=== PATIENT | male | born 1950 | race Caucasian/White ===

== ENCOUNTER 2020-04-09 12:37 | Inpatient (IN) | payer OTHER, MEDICARE, SELFPAY ==
[2020-04-09] VITALS (30 sets, daily range): BP systolic 122–215; BP diastolic 65–116; PULSE 80–126; RESP 15–30; TEMP 36.5–36.8; O2SAT 93–97; BMI 38.3
--- NOTE | 2020-04-09 13:01 | XR_ITS ---
WS: [id number] PORTABLE CHEST HISTORY: DYSPNEA COMPARISON: None available. Lungs are clear and well expanded. No pleural effusion or pneumothorax. Cardiac size: Normal. Mediastinum/Aorta: Normal mediastinum. No osseous abnormality seen. XR/XR chest 1V portable [id number] IMPRESSION: Unremarkable portable chest.
--- NOTE | 2020-04-09 13:02 | ECG_ITS ---
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 Measurements Intervals [place] Rate: 124 P: 41 IN: 187 QRS: -37 QRSD: 87 T: -3 QT: 319 QTc: 459 Interpretive Statements SINUS TACHYCARDIA PATTERN CONSISTENT WITH PULMONARY DISEASE INFERIOR MYOCARDIAL INFARCTION [40+ ms Q WAVE AND/OR ST/T ABNORMALITY IN II/aVF], PROBABLY OLD Compared to ECG 08/22/2016 16:37:30 Myocardial infarct finding now present Sinus rhythm no longer present First degree AV block no longer present Intraventricular conduction delay no longer present Electronically Signed On 04-10-2020 16:24:42 CDT by Wiley Wilhelm M.D. [id number]
[2020-04-09 13:30] LABS: Basophils % 0.2 %; Eosinophils # 0.2 10^3/uL (0.0-0.8); Eosinophils % 2.5 %; Hematocrit 47.3 % (42.0-52.0); Hemoglobin 15.4 g/dL (11.7-16.6); Lymphocytes # 1.8 10^3/uL (0.8-4.8); Lymphocytes % 21.6 %; Mean Corpuscular HGB Conc 32.6 g/dL (30.0-36.0); Mean Corpuscular Hemoglobin 29.5 pg (28.0-34.0); Mean Corpuscular Volume 90.6 fL (80-94); Mean Platelet Volume 10.2 fL (7.4-10.4); Monocytes # 0.6 10^3/uL (0.2-0.9); Monocytes % 7.7 %; Neutrophils # 5.51 10^3/uL (1.8-7.7); Neutrophils % 67.8 %; Nucleated Red Blood Cells % 0 %; Platelet Count 242 10^3/cmm (130-400); Red Blood Count 5.22 10^6/uL (4.1-5.3); Red Cell Distribution Width 11.8 % (12.1-15.1); White Blood Count 8.1 10^3/uL (4.0-10.0)
[2020-04-09] MEDS: labetalol 5 mg/mL SDV 20mL 10 MG IVP ×2 (13:34→14:12)
[2020-04-09] MEDS: sodium chloride 0.9% 1,000 ML 75 ML IV (13:35)
--- NOTE | 2020-04-09 13:39 | ED_ITS ---
HPI - Chest Pain General: Chief Complaint: Chest Pain Stated Complaint: sent by va Time Seen by Provider: 04/09/20 13:00 Source: patient Mode of arrival: ambulatory Limitations: no limitations History of Present Illness: HPI narrative: Mr. Carter is a nice 69-year-old male who comes in complaining of feeling lightheaded and dizzy. He also has chest pressure and chest heaviness. Patient states he did not sleep at all last night and he cannot explain to me why. He states that his legs were uncomfortable which to him as often a problem as he has neuropathy and chronic pain in his legs. He got up this morning and went to have coffee with his friends but then upon turning home he sat down and rested and felt like he was going to fall asleep but an effort to stay up he decided to go out and work in his garage. There is no air conditioning there but he did turn on a fan and said he was only doing some light work in the garage including using a air blower when he began to feel like he was floating and lightheaded. He had a sensation of blood in his mouth. And then developed chest pressure and heaviness. He denies anything similar in the past. He denies any exacerbating alleviating factors. Slowly as time has gone on he feels better as he has been in the air conditioning and cool down. Associated symptoms: Reports dyspnea; Deny abdominal pain, diaphoresis, fever(s), nausea, palpitations, syncope or vomiting Review of Systems 2 Const: Reports: fatigue and malaise; Denies: fever(s), chills, body aches or diaphoresis Eyes: Denies: change in vision, blurry vision, blind spots, photophobia, eye discharge or eye redness ENMT: Denies: throat pain, odynophagia, hoarseness, swelling of lips/tongue, oral sores, ear or mastoid pain, ear discharge, change in hearing or nasal discharge Card: Reports: chest pain and lightheadedness; Denies: palpitations, irregular heart rhythm, edema, syncope, pre-syncope, dyspnea on exertion or orthopnea Resp: Reports: dyspnea; Denies: productive cough, non-productive cough, wheezing, hemoptysis or chest congestion GI: Denies: abdominal pain, nausea, vomiting, hematemesis, coffee ground emesis, heartburn, diarrhea, constipation, GI cramping, hematochezia or melena : Denies: flank pain, dysuria, urinary frequency, urinary urgency or hematuria Musc: Denies: neck pain, back pain, extremity pain, extremity swelling, joint pain, joint swelling, joint redness, joint warmth or joint stiffness Skin/Breast: Denies: rash, pruritus, erythema, skin tenderness or jaundice Neuro: Denies: headache(s), numbness in extremities, weakness in extremities, sensory changes, lack of coordination, difficulty walking, dizziness, vertigo, confusion, Slurred speech present or seizure-like activity Tad/Lymph: Denies: easy bruising, easy bleeding, petechiae, purpura or enlarged lymph nodes All/Imm: Denies: urticaria, throat swelling, tongue swelling, facial swelling or acute wheezing PFSH ED PFSH: Medical History Hypertension Physical Exam Const: COMMON NORMALS: no acute distress, patient oriented x3, no limitations, healthy appearing and well nourished GENERAL APPEARANCE: cooperative, well kempt and well developed HENMT: COMMON NORMALS: normocephalic, atraumatic, external ears normal, EAC's normal and Normal external nose present HEAD & SCALP: normal to inspection, normocephalic and atraumatic FACE & SINUS: normal facial exam and face symmetric NOSE: Normal external nose present and Normal nares present EXTERNAL EAR: Yes external ears normal EXTERNAL AUDITORY CANAL: EAC's normal MOUTH: Normal oral and palatal mucosa present, lip normal, tongue normal and other (No obvious bleeding from the mouth. On right bug mucosal service possible cause of bleeding with the inflamed vein.) Eye: COMMON NORMALS: Equal, round and reactive pupils present and conjunctivae normal GENERAL EYE: appearance normal, both eyes and all related structures ALIGNMENT: Yes alignment normal PERIORBITAL: periorbital findings normal EYELID: eyelids normal CONJUNCTIVA: Yes conjunctivae normal SCLERA: sclerae normal PUPIL: Yes Equal, round and reactive pupils present Neck/C-Spine: COMMON NORMALS: full ROM, no lymphadenopathy, supple, no meningeal signs and no JVD GENERAL: Yes normal visual inspection and Yes trachea midline Chest: COMMONS NORMALS: normal inspection of the chest and normal palpation of entire chest wall Resp: COMMON NORMALS: normal respiratory effort, No retractions and No use of accessory muscles EFFORT & INSPECTION: Yes able to speak in complete sentences and Yes symmetric chest movement AUSCULTATION: no crackles, no rales, no rhonchi and no wheezes Cardio: COMMON NORMALS: no JVD, regular rate, regular rhythm, S1 normal heart sound present and S2 normal heart sound present RATE: regular rate RHYTHM: regular rhythm HEART SOUNDS: S1 normal heart sound present, S2 normal heart sound present, no click, no gallops, no murmurs, no rubs and abnormal split S2 GI: COMMON NORMALS: Soft to palpation and No hepatosplenomegaly present PALPATION: Yes Soft to palpation, No Tenderness to palpation present (GI), No Guarding due to palpation present (GI), No Rigid due to palpation, Yes No hepatosplenomegaly present, No Hernia present, No Palpable mass present and No Pulsatile mass present : COMMON NORMALS: Yes no CVA tenderness BLADDER/KIDNEY EXAM: Yes no CVA tenderness Back/Pelvis: COMMON NORMALS: no CVA tenderness, thoracic and lumbar spine normal to inspection, no thoracic nor lumbar tenderness and thoraco-lumbar ROM normal Extremity: COMMON NORMALS: normal to inspection, full ROM, capillary refill normal, no joint enlargement, no clubbing, cyanosis or edema and no calf tenderness Neuro: COMMON NORMALS: patient oriented x3, CN's II-XII intact bilaterally, moves all extremities, no focal motor deficits and no sensory deficits noted MENINGEAL SIGNS: Yes no meningeal signs SPEECH: speech normal Psych: COMMON NORMALS: mental status grossly normal, Normal thought process present, cooperative, normal affect, speech normal and activity/motor behavior normal APPEARANCE: Yes well kempt SPEECH: Yes normal speech THOUGHT PROCESS: Normal thought process present Skin: COMMON NORMALS: no rashes or lesions noted, turgor normal, no jaundice, no petechiae and no mottling GENERAL SKIN EXAM: no rashes or lesions noted and turgor normal Course Vital Signs: Vital signs: Vital Signs Temperature 98.3 F 04/09/20 18:03 Pulse Rate 90 04/09/20 18:03 Respiratory Rate 18 04/09/20 18:03 Blood Pressure 147/92 04/09/20 18:03 Pulse Oximetry 94 04/09/20 18:03 MDM - Chest Pain MDM Narrative: Medical decision making narrative: Patient is a poor historian as far as his past medical history goes it looks like he also has a history of hyperlipidemia, BPH, depression/anxiety and likely has undiagnosed diabetes. The patient's blood pressure has been extremely hard to control. 2 doses of labetalol decreased his heart rate but did not do much to decrease his blood pressure. He has necessitated nitroglycerin drip to keep his blood pressure less than 180 systolic. Patient's chest x-ray is normal and he is vascularly intact. I see no evidence of dissection or PE. The patient I believe has hypertensive urgency as he is symptomatic from his high blood pressure but at this time I do not see any evidence of endorgan damage. There is question whether he is compliant with his medications. Because of this I have endorsed the case to Dr. Jonas Harrison and she agrees to admit the patient and she will come evaluate him here in the ER. Lab Data: Attestation: I reviewed the patient's lab results. Labs: Lab Results 04/09/20 04/09/20 04/09/20 Range/Units 13:20 13:20 13:20 WBC 8.1 (4.0-10.0) 10^3/ uL RBC 5.22 (4.1-5.3) 10^6/u L Hgb 15.4 (11.7-16.6) g/dL Hct 47.3 (42.0-52.0) % MCV 90.6 (80-94) fL MCH 29.5 (28.0-34.0) pg MCHC 32.6 (30.0-36.0) g/dL RDW 11.8 L (12.1-15.1) % Plt Count 242 (130-400) 10^3/c mm MPV 10.2 (7.4-10.4) fL Neut % (Auto) 67.8 % Lymph % (Auto) 21.6 % Gilmer % (Auto) 7.7 % Eos % (Auto) 2.5 % Baso % (Auto) 0.2 % Neut # (Auto) 5.51 (1.8-7.7) 10^3/u L Lymph # (Auto) 1.8 (0.8-4.8) 10^3/u L Gilmer # (Auto) 0.6 (0.2-0.9) 10^3/u L Eos # (Auto) 0.2 (0.0-0.8) 10^3/u L Baso # (Auto) 0.0 (0.0-0.1) 10^3/u L Nucleated RBC % (a uto) 0 % Nucleated RBCs # 0.0 /100WBC PT 12.50 (10.5-13.3) SECO NDS INR 0.91 (0.8-1.2) D-Dimer 0.52 (0-0.59) ug/mIFE U Specimen Type Sample Site ABG pH (7.35-7.45) ABG pCO2 (35-45) mmHg ABG pO2 (80.0-100.0) mmH g ABG HCO3 (22-26) mmol/L ABG Base Excess (-2.0-2.0) mmol/ L Edwin Test Hematocrit (42-52) % O2 Delivery Device FiO2 % Speaker Mounter ID Sodium 134 L (136-145) mmol/L Potassium 3.8 (3.5-5.1) mmol/L Chloride 99 (98-107) mmol/L Carbon Dioxide 21 L (22-29) mmol/L Anion Gap 17.8 (5-19) BUN 9 (8-23) mg/dL Creatinine 1.0 (0.7-1.2) mg/dL GFR Calculation 73.9 L (90-130) mL/min Glucose 444 H (65-115) mg/dL Calculated Osmolal ity 293 (285-295) mOsm/k g Calcium 9.5 (8.5-10.5) mg/dL Magnesium 2.0 (1.7-2.3) mg/dL Total Bilirubin 0.3 (0.15-1.2) mg/dL AST 14 (0-40) U/L ALT 18 (0-41) U/L Alkaline Phosphata se 126 (40-130) IU/L Creatine Kinase 79 (39-308) U/L Troponin T Baselin e (0-15) ng/L Troponin T 120 Min absentee-[place] (0-15) ng/L Delta Troponin T (0-10) ABS# Total Protein 7.4 (6.6-8.7) g/dL Albumin 4.4 (3.5-5.2) g/dL Globulin 3.0 (1.3-4.6) g/dL TSH 1.14 (0.27-4.20) uIU/ mL Free T4 1.27 (0.82-1.77) ng/d L Urine Color (Yellow) Urine Appearance (CLEAR) Urine pH (5-7) Ur Specific Gravit y (1.005-1.030) Urine Protein (Negative) Urine Glucose (UA) (Normal) Urine Ketones (Negative) Urine Blood (Negative) Urine Nitrate (Negative) Urine Bilirubin (NEGATIVE) Urine Urobilinogen (Negative) mg/dL Ur Leukocyte Belinda ase (Negative) Urine RBC (0-2) /hpf Urine WBC (0-5) /hpf Ur Squamous Epith Cells (0-5) Urine Bacteria (NONE) Serum Ketones (Negative) 04/09/20 04/09/20 04/09/20 Range/Units 13:20 13:20 14:37 WBC (4.0-10.0) 10^3/ uL RBC (4.1-5.3) 10^6/u L Hgb (11.7-16.6) g/dL Hct (42.0-52.0) % MCV (80-94) fL MCH (28.0-34.0) pg MCHC (30.0-36.0) g/dL RDW (12.1-15.1) % Plt Count (130-400) 10^3/c mm MPV (7.4-10.4) fL Neut % (Auto) % Lymph % (Auto) % Gilmer % (Auto) % Eos % (Auto) % Baso % (Auto) % Neut # (Auto) (1.8-7.7) 10^3/u L Lymph # (Auto) (0.8-4.8) 10^3/u L Gilmer # (Auto) (0.2-0.9) 10^3/u L Eos # (Auto) (0.0-0.8) 10^3/u L Baso # (Auto) (0.0-0.1) 10^3/u L Nucleated RBC % (a uto) % Nucleated RBCs # /100WBC PT (10.5-13.3) SECO NDS INR (0.8-1.2) D-Dimer (0-0.59) ug/mIFE U Specimen Type Arterial Sample Site Radial, right ABG pH 7.38 (7.35-7.45) ABG pCO2 35.4 (35-45) mmHg ABG pO2 73.4 L (80.0-100.0) mmH g ABG HCO3 20.9 L (22-26) mmol/L ABG Base Excess -3.5 L (-2.0-2.0) mmol/ L Edwin Test Pos Hematocrit 48.3 (42-52) % O2 Delivery Device None FiO2 21.0 % Speaker Mounter ID ed Sodium (136-145) mmol/L Potassium (3.5-5.1) mmol/L Chloride (98-107) mmol/L Carbon Dioxide (22-29) mmol/L Anion Gap (5-19) BUN (8-23) mg/dL Creatinine (0.7-1.2) mg/dL GFR Calculation (90-130) mL/min Glucose (65-115) mg/dL Calculated Osmolal ity (285-295) mOsm/k g Calcium (8.5-10.5) mg/dL Magnesium (1.7-2.3) mg/dL Total Bilirubin (0.15-1.2) mg/dL AST (0-40) U/L ALT (0-41) U/L Alkaline Phosphata se (40-130) IU/L Creatine Kinase (39-308) U/L Troponin T Baselin e 13 (0-15) ng/L Troponin T 120 Min absentee-[place] (0-15) ng/L Delta Troponin T (0-10) ABS# Total Protein (6.6-8.7) g/dL Albumin (3.5-5.2) g/dL Globulin (1.3-4.6) g/dL TSH (0.27-4.20) uIU/ mL Free T4 (0.82-1.77) ng/d L Urine Color (Yellow) Urine Appearance (CLEAR) Urine pH (5-7) Ur Specific Gravit y (1.005-1.030) Urine Protein (Negative) Urine Glucose (UA) (Normal) Urine Ketones (Negative) Urine Blood (Negative) Urine Nitrate (Negative) Urine Bilirubin (NEGATIVE) Urine Urobilinogen (Negative) mg/dL Ur Leukocyte Belinda ase (Negative) Urine RBC (0-2) /hpf Urine WBC (0-5) /hpf Ur Squamous Epith Cells (0-5) Urine Bacteria (NONE) Serum Ketones Negative (Negative) 04/09/20 04/09/20 Range/Units 14:39 15:25 WBC (4.0-10.0) 10^3/ uL RBC (4.1-5.3) 10^6/u L Hgb (11.7-16.6) g/dL Hct (42.0-52.0) % MCV (80-94) fL MCH (28.0-34.0) pg MCHC (30.0-36.0) g/dL RDW (12.1-15.1) % Plt Count (130-400) 10^3/c mm MPV (7.4-10.4) fL Neut % (Auto) % Lymph % (Auto) % Gilmer % (Auto) % Eos % (Auto) % Baso % (Auto) % Neut # (Auto) (1.8-7.7) 10^3/u L Lymph # (Auto) (0.8-4.8) 10^3/u L [place]mer # (Auto) (0.2-0.9) 10^3/u L Eos # (Auto) (0.0-0.8) 10^3/u L Baso # (Auto) (0.0-0.1) 10^3/u L Nucleated RBC % (a uto) % Nucleated RBCs # /100WBC PT (10.5-13.3) SECO NDS INR (0.8-1.2) D-Dimer (0-0.59) ug/mIFE U Specimen Type Sample Site ABG pH (7.35-7.45) ABG pCO2 (35-45) mmHg ABG pO2 (80.0-100.0) mmH g ABG HCO3 (22-26) mmol/L ABG Base Excess (-2.0-2.0) mmol/ L Edwin Test Hematocrit (42-52) % O2 Delivery Device FiO2 % Speaker Mounter ID Sodium (136-145) mmol/L Potassium (3.5-5.1) mmol/L Chloride (98-107) mmol/L Carbon Dioxide (22-29) mmol/L Anion Gap (5-19) BUN (8-23) mg/dL Creatinine (0.7-1.2) mg/dL GFR Calculation (90-130) mL/min Glucose (65-115) mg/dL Calculated Osmolal ity (285-295) mOsm/k g Calcium (8.5-10.5) mg/dL Magnesium (1.7-2.3) mg/dL Total Bilirubin (0.15-1.2) mg/dL AST (0-40) U/L ALT (0-41) U/L Alkaline Phosphata se (40-130) IU/L Creatine Kinase (39-308) U/L Troponin T Baselin e (0-15) ng/L Troponin T 120 Min absentee-[place] 12.67 (0-15) ng/L Delta Troponin T -0.33 L (0-10) ABS# Total Protein (6.6-8.7) g/dL Albumin (3.5-5.2) g/dL Globulin (1.3-4.6) g/dL TSH (0.27-4.20) uIU/ mL Free T4 (0.82-1.77) ng/d L Urine Color Straw (Yellow) Urine Appearance Clear (CLEAR) Urine pH 5 (5-7) Ur Specific Gravit y 1.015 (1.005-1.030) Urine Protein Neg (Negative) Urine Glucose (UA) 4+ H (Normal) Urine Ketones Negative (Negative) Urine Blood Neg (Negative) Urine Nitrate Negative (Negative) Urine Bilirubin Neg (NEGATIVE) Urine Urobilinogen Norm (Negative) mg/dL Ur Leukocyte Belinda ase Negative (Negative) Urine RBC 0-4 H (0-2) /hpf Urine WBC None (0-5) /hpf Ur Squamous Epith Cells 0-4 H (0-5) Urine Bacteria Trace (NONE) Serum Ketones (Negative) Imaging Data^: CXR: My impression: No acute cardiopulmonary findings. EKG Data^: EKG 1: Attestation: I personally reviewed and interpreted this EKG as follows: EKG interpretation date: 04/09/20 EKG interpretation time: 12:52 Interpretation: Sinus tachycardia with a heart rate of 124, no blocks, normal intervals. Nonspecific ST and T wave changes. EKG 2: Attestation: I personally reviewed and interpreted this EKG as follows: EKG interpretation date: 04/09/20 EKG interpretation time: 14:44 Interpretation: Normal sinus rhythm at 93 beats a minute, left axis deviation, no acute ST or T wave changes. Discharge Plan Discharge Patient Disposition: Admitted As Inpatient Admit Provider: Sia Law Clinical Impression: Hypertensive urgency Chest pain Qualifiers: Chest pain type: unspecified Qualified Code(s): R07.9 - Chest pain, unspecified Condition: Stable Referrals: Toi Smyth DO [Primary Care Provider] - Discharge Date/Time: 04/09/20 18:10 Coding Level of Care Code ED Manifest Clerk for Chg Fwd Exam Comprehensive
[2020-04-09 13:41] LABS: INR 0.91 (0.8-1.2)
[2020-04-09 13:43] LABS: D Dimer 0.52 ug/mIFEU (0-0.59)
[2020-04-09 14:00] LABS: Alanine Aminotransferase 18 U/L (0-41); Albumin Level 4.4 g/dL (3.5-5.2); Alkaline Phosphatase 126 IU/L (40-130); Anion Gap 17.8 (5-19); Aspartate Amino Transferase 14 U/L (0-40); Blood Urea Nitrogen 9 mg/dL (8-23); Calcium 9.5 mg/dL (8.5-10.5); Carbon Dioxide 21 mmol/L (22-29); Chloride 99 mmol/L (98-107); Creatine Phosphokinase 79 U/L (39-308); Free T4 Free Thyroxine 1.27 ng/dL (0.82-1.77); Glomerular Filtration Rate 73.9 mL/min (90-130); Glucose 444 mg/dL (65-115); Osmolality Calculated 293 mOsm/kg (285-295); Potassium 3.8 mmol/L (3.5-5.1); Sodium 134 mmol/L (136-145); Thyroid Stimulating Hormone 1.14 uIU/mL (0.27-4.20); Total Bilirubin 0.3 mg/dL (0.15-1.2); Total Protein 7.4 g/dL (6.6-8.7)
[2020-04-09 14:16] LABS: Troponin(5th) Baseline 13 ng/L (0-15)
[2020-04-09 14:17] LABS: Ketone (Acetest) Serum Negative (Negative)
[2020-04-09 14:47] LABS: ABG PCO2 35.4 mmHg (35-45); ABG PH Result 7.38 (7.35-7.45); Arterial Blood Gas Hematocrit 48.3 % (42-52); Base Excess ABG -3.5 mmol/L (-2.0-2.0); Blood Gas Allen Test Pos; Blood Gas Sample Site Radial, right; Blood Gas Sample Type Arterial; HCO3 ABG 20.9 mmol/L (22-26); PO2 ABG 73.4 mmHg (80.0-100.0)
--- NOTE | 2020-04-09 15:02 | ECG_ITS ---
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 Measurements Intervals [place] Rate: 93 P: 36 MS: 180 QRS: -25 QRSD: 98 T: -7 QT: 364 QTc: 455 Interpretive Statements SINUS RHYTHM BORDERLINE LEFT AXIS DEVIATION [QRS AXIS < -20] Compared to ECG 04/09/2020 12:52:30 Sinus tachycardia no longer present Myocardial infarct finding no longer present Electronically Signed On 04-10-2020 16:29:52 CDT by Wiley Wilhelm M.D. [id number]
[2020-04-09] MEDS: metoprolol tartrate 1 mg/1 mL SDV 5 mL 5 MG IV (15:03)
[2020-04-09 15:10] LABS: Glucose Urine UA 4+ (Normal); Protein Urine Neg (Negative); Specific Gravity, Urine 1.015 (1.005-1.030); Urine Appearance Clear (CLEAR); Urine Color Straw (Yellow); pH Urine 5 (5-7)
[2020-04-09 15:11] LABS: Bilirubin Urine Neg (NEGATIVE); Blood Urine Neg (Negative); Ketones Urine Negative (Negative); Leukocyte Esterase Urine Negative (Negative); Nitrate Urine Negative (Negative); Urobilinogen Urine Norm (Negative)
[2020-04-09] MEDS: nitroglycerin drip 50 MG/250 ML PREMIX IV (15:13)
[2020-04-09 15:18] LABS: Add Urine Culture? No; Bacteria Urine TRACE; RBC Urine 0-4 /hpf (0-2); Squamous Epithelial Cell Urine 0-4 (0-5)
[2020-04-09 16:15] LABS: Troponin 5 2HR 12.67 ng/L (0-15)
[2020-04-09 16:20] LABS: Troponin 5 2HR Delta -0.33 ABS# (0-10)
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
--- NOTE | 2020-04-09 18:35 | PC.NURSE ---
Addendum entered by Joann Patel RN 04/09/20 18:37: Patient does not have any pain or any complaints at this time, stating I feel better. Original Note: Patient arrived to the floor from the ED after report was received via phone. Patient is alert and oriented and able to ambulate. Nitro drip running at 10 mcg/min. Sinus rhythm. VSS. On room air. Patient has been oriented to his room and has call light within reach. Frequent blood pressure monitoring. Will monitor.
[2020-04-09] MEDS: enoxaparin 40 mg/0.4 mL Syringe SUBCUT (19:00)
[2020-04-09] MEDS: amlodipine 10 mg Tablet PO (19:01)
--- NOTE | 2020-04-09 19:02 | ECG_ITS ---
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 Measurements Intervals [place] Rate: 85 P: 55 OK: 207 QRS: -24 QRSD: 108 T: -8 QT: 367 QTc: 438 Interpretive Statements SINUS RHYTHM INFERIOR MYOCARDIAL INFARCTION [40+ ms Q WAVE AND/OR ST/T ABNORMALITY IN II/aVF], PROBABLY OLD Compared to ECG 04/09/2020 14:44:15 Myocardial infarct finding now present Electronically Signed On 04-10-2020 16:31:06 CDT by Wiley Wilhelm M.D. [email or web address]
[2020-04-09 19:37] LABS: Troponin 5 6HR 13.33 ng/L (0-15); Troponin 5 6HR Delta 0.33 ng/L (0-12)
[2020-04-09 19:59] LABS: Glucose Point of Care 255 mg/dL (70-110)
[2020-04-09] MEDS: duloxetine 60 mg Capsule PO (20:08)
--- NOTE | 2020-04-09 21:20 | PC.NURSE ---
Patient is currently resting with eyes closed. Will monitor.
[2020-04-10] VITALS (27 sets, daily range): BP systolic 114–182; BP diastolic 68–105; PULSE 53–96; RESP 12–25; TEMP 36.5–36.9; O2SAT 93–97
[2020-04-10] MEDS: acetaminophen 325 mg Tablet 650 MG PO (01:07)
--- NOTE | 2020-04-10 03:46 | PC.NURSE ---
Patient does not have any complaints at this time. Will monitor.
[2020-04-10 04:09] LABS: Basophils % 0.3 %; Eosinophils # 0.3 10^3/uL (0.0-0.8); Hematocrit 42.1 % (42.0-52.0); Hemoglobin 14.6 g/dL (11.7-16.6); Lymphocytes # 2.1 10^3/uL (0.8-4.8); Lymphocytes % 18.7 %; Mean Corpuscular HGB Conc 34.7 g/dL (30.0-36.0); Mean Corpuscular Hemoglobin 31.3 pg (28.0-34.0); Mean Corpuscular Volume 90.1 fL (80-94); Mean Platelet Volume 10.5 fL (7.4-10.4); Monocytes # 0.9 10^3/uL (0.2-0.9); Monocytes % 7.7 %; Neutrophils # 7.82 10^3/uL (1.8-7.7); Neutrophils % 70.1 %; Nucleated Red Blood Cells % 0 %; Platelet Count 246 10^3/cmm (130-400); Red Blood Count 4.67 10^6/uL (4.1-5.3); Red Cell Distribution Width 12.2 % (12.1-15.1); White Blood Count 11.2 10^3/uL (4.0-10.0)
[2020-04-10 04:34] LABS: Chol HDL Ratio 7.81 mg/dL (1.0-5.00); Cholesterol 250 mg/dL (0-200); HDL Cholesterol 32 mg/dL (60-100); Triglycerides 473 mg/dL (0-150)
[2020-04-10 04:36] LABS: Blood Urea Nitrogen 7 mg/dL (8-23); Calcium 8.5 mg/dL (8.5-10.5); Carbon Dioxide 23 mmol/L (22-29); Chloride 102 mmol/L (98-107); Glomerular Filtration Rate 95.6 mL/min (90-130); Glucose 218 mg/dL (65-115); Magnesium 2.1 mg/dL (1.7-2.3); Osmolality Calculated 286 mOsm/kg (285-295); Sodium 137 mmol/L (136-145)
[2020-04-10 04:40] LABS: Estmated Average Glucose 283; Hemoglobin A1C 11.5 % (4.0-6.0)
[2020-04-10 05:04] LABS: LDL Cholesterol Direct 138 mg/dL (0-100)
[2020-04-10 07:01] LABS: Glucose Point of Care 274 mg/dL (70-110)
--- NOTE | 2020-04-10 08:15 | PC.NURSE ---
PATIENT RESTING COMFORTABLY IN BED ; BP WAS ELEVATED HOWEVER BP CUFF WAS ON FOREARM ; CUFF WAS REPOSITIONED TO CORRECT POSITION AND RETAKEN WITH A BP OF 156/89 ; PATIENT QUESTIONS AND CONCERNS ADDRESSED
[2020-04-10] MEDS: cholecalciferol (vitamin D3) 1,000 unit Tablet 2000 UNIT PO (09:17)
[2020-04-10] MEDS: hydroCHLOROthiazide 25 mg Tablet PO (09:18)
[2020-04-10] MEDS: metoprolol tartrate 50 mg Tablet 75 MG PO ×2 (09:18→18:24)
[2020-04-10] MEDS: potassium chloride ER 10 mEq Tablet 20 MEQ PO (09:18)
[2020-04-10] MEDS: amlodipine 10 mg Tablet PO (09:18)
--- NOTE | 2020-04-10 09:18 | P.PN_ITS ---
Subjective Subjective: Interval history: Nitroglycerin drip increased to 10 mcg/min overnight due to continued hypertensive urgency. Blood pressure is better this morning. Patient has had very slight headache that was quickly alleviated after dose of Tylenol given. He is resting comfortably in bed during my assessment. We will work on weaning nitroglycerin drip off. Oral antihypertensive regimen has already been resumed. Pending echo. Medications: Reviewed: Yes Medication Review Details: Active Medications Generic Name Dose Route Start Last Admin Trade Name Freq PRN Reason Stop Dose Admin Acetaminophen 650 mg 04/09/20 18:18 04/10/20 01:07 Tylenol PO 650 mg Q6H PRN Administration Mild/Mod Pain Or Temp >/= 101 Amlodipine Besylat e 10 mg 04/09/20 19:00 04/09/20 19:01 Norvasc PO 10 mg DAILY NAHUN Administration Atorvastatin Calci um 80 mg 04/10/20 18:00 Lipitor PO QPM NAHUN Dextrose 25 ml 04/09/20 19:22 D50w IVP ONCE PRN hypoglycemia prot ocol Protocol Dextrose 50 ml 04/09/20 19:22 D50w IVP PRN PRN hypoglycemia prot ocol Protocol Duloxetine HCl 60 mg 04/09/20 21:00 04/09/20 20:08 Cymbalta PO 60 mg BEDTIME NAHUN Administration Enoxaparin Sodium 40 mg 04/09/20 19:15 04/09/20 19:00 Lovenox SUBCUT 40 mg Q24H NAHUN Administration Glucagon 1 mg 04/09/20 19:22 Glucagen IM ONCE PRN Adult Acute Hypog lycemia Prot. Protocol Hydrochlorothiazid e 25 mg 04/10/20 09:00 Hctz PO DAILY NAHUN Nitroglycerin/Dext dario 50 mg in 250 mls @ 0 mls/hr 04/09/20 14:45 04/10/20 05:[address] ip IV 10 mcg/min .Q0M NAHUN 3 mls/hr Titration Protocol Per Protocol Dextrose 500 mls @ 100 mls /hr 04/09/20 19:22 D5w IV ONCE PRN Adult Acute Hypog lycemia Prot Protocol Insulin Aspart 0 unit 04/09/20 21:00 04/09/20 20:08 Novolog SUBCUT 8 unit WM&BEDTIME NAHUN Administration Protocol Losartan Potassium 100 mg 04/10/20 09:00 Cozaar PO DAILY NAHUN Metoprolol Tartrat e 75 mg 04/10/20 09:00 Lopressor PO BID [facility] Ondansetron HCl 4 mg 04/09/20 18:03 Zofran IVP Q6H PRN NAUSEA AND VOMITI NG Potassium Chloride 20 meq 04/10/20 09:00 Klor-Con 10 PO DAILY [facility] Tamsulosin HCl 0.4 mg 04/10/20 18:00 Flomax PO QPM [facility] Vitamin D 2,000 unit 04/10/20 09:00 Vitamin D3 PO DAILY [facility] Penicillins Allergy (Verified 04/09/20 18:34) Unknown Sulfa (Sulfonamide Antibiotics) Allergy (Verified 04/09/20 18:34) Unknown Vitals/I&O/Wt Last Vital Signs Temp 97.7 F 04/10/20 06:58 Pulse 89 04/10/20 06:58 Resp 16 04/10/20 06:58 BP 154/105 04/10/20 06:58 Pulse Ox 93 04/10/20 06:58 04/09/20 04/10/20 04/10/20 22:59 06:59 14:59 Intake Total 19.70 / 19.70 545.025 / 564.725 240 / 240 Balance 19.70 / 19.70 545.025 / 564.725 240 / 240 Weight last 48 hrs Weight 126.235 kg Weight 124.738 kg Physical Exam Const: COMMON NORMALS: no acute distress, patient oriented x3 and alert GENERAL APPEARANCE: cooperative and comfortable NUTRITIONAL APPEARANCE: obese morbidly obese ORIENTATION/CONSCIOUSNESS: Yes awake HENMT: COMMON NORMALS: normocephalic, atraumatic and hearing grossly normal bilaterally HEAD & SCALP: normocephalic and atraumatic MOUTH: moist mucous membranes abnormal Details: parched Eye: COMMON NORMALS: Equal, round and reactive pupils present, EOMs intact bilaterally and conjunctivae normal CONJUNCTIVA: Yes conjunctivae normal PUPIL: Yes Equal, round and reactive pupils present Neck/C-Spine: COMMON NORMALS: full ROM GENERAL: Yes normal visual inspection and Yes trachea midline Resp: COMMON NORMALS: normal respiratory effort, No retractions, No use of accessory muscles and clear to auscultation bilaterally EFFORT & INSPECTION: Yes able to speak in complete sentences, Yes symmetric chest movement and No tachypneic AUSCULTATION: clear to auscultation bilaterally Cardio: COMMON NORMALS: regular rate, regular rhythm, S1 normal heart sound present, S2 normal heart sound present and No murmurs present (Cardio) RATE: regular rate RHYTHM: regular rhythm HEART SOUNDS: S1 normal heart sound present and S2 normal heart sound present OTHER: -Blood pressure improved GI: COMMON NORMALS: Normal to inspection, nondistended, normoactive bowel sounds present, Soft to palpation and non-tender INSPECTION: Yes central obesity PALPATION: Yes Soft to palpation Extremity: COMMON NORMALS: normal to inspection, full ROM and no clubbing, cyanosis or edema; negative for no pedal edema Neuro: COMMON NORMALS: patient oriented x3, moves all extremities, no focal motor deficits and no sensory deficits noted SENSORIUM/ORIENTATION: Yes alert Psych: COMMON NORMALS: mental status grossly normal, Normal thought process present, cooperative, normal affect and speech normal SPEECH: Yes normal speech THOUGHT PROCESS: Normal thought process present Skin: COMMON NORMALS: no rashes or lesions noted, no jaundice, no petechiae and no mottling GENERAL SKIN EXAM: no rashes or lesions noted Data : 04/10/20 02:50 04/10/20 02:50 A&P Assessment and plan (1) Hypertensive urgency: -Presented with symptoms of exertional chest discomfort, and feeling like he was outside his body -Has a known history of hypertension -Currently on nitroglycerin drip, on oral antihypertensive regimen -Continued close monitoring of vital signs -noted troponins with no significant delta; serial ECGs -may need outpatient nuclear stress test -telemetry monitoring -Echo ordered -noted A1c, lipid panel, TSH -CXR: unremarkable Status: Acute (2) Chest pain: -likely related to hypertensive urgency but may benefit from outpatient nuclear stress testing once blood pressure more optimally controlled Status: Acute Qualifiers: Chest pain type: unspecified Qualified Code(s): R07.9 - Chest pain, unspecified (3) Hypertension: -Hypertensive urgency and on nitroglycerin drip, wean as tolerated -continue to monitor vital signs especially blood pressure -continue oral antihypertensive regimen Status: Chronic Qualifiers: Hypertension type: essential hypertension Qualified Code(s): I10 - Essential (primary) hypertension (4) BPH (benign prostatic hyperplasia): -on tamsulosin Status: Chronic Qualifiers: Lower urinary tract symptom presence: symptoms absent Qualified Code(s): N40.0 - Benign prostatic hyperplasia without lower urinary tract symptoms (5) Peripheral neuropathy: -on Cymbalta Status: Chronic Qualifiers: Peripheral neuropathy type: polyneuropathy, unspecified Qualified Code(s): G62.9 - Polyneuropathy, unspecified (6) Morbid obesity: -BMI-39 kg/m2 Status: Chronic (7) Dyslipidemia: -abnormal lipid panel noted -on statin Status: Chronic (8) Hyperglycemia: -No prior history of DM -Noted significant hyperglycemia on labs today with blood sugar of 444, low serum ketones, normal pH, not in DKA -A1c-11.5 -Accu-Cheks, ISS, hypoglycemia precautions -add meal time and long acting insulin Status: Acute (9) CKD (chronic kidney disease) stage 2, GFR 60-89 ml/min: -baseline Cr is around 1.0 -renally dose meds, avoid nephrotoxins Status: Chronic Additional A&P Information -cardiac consistent carb diet as tolerated -DVT ppx with Lovenox -Dispo: home; will need home health services due to new meds particularly for diabetes -Code status: FULL code -Due to need for continued nitroglycerin drip and close monitoring of hemodynamic status, will change to inpatient status Attestations 2 Medical Necessity Statement*: Patient requires hospitalization for continued management of hypertensive urgency and continued monitoring of hyperglycemia given new diagnosis of diabetes. Time Spent in Patient Care: 16 - 35 minutes (>than 50% of time spent in counselling and/or direct pt care on unit) . Coding Level of Care Code Acute Fuel Tank Sealer And Tester for g Fwd Exam Comprehensive Diagnoses Hypertensive urgency I16.0 Chest pain R07.9 Chest pain type: unspecified Hypertension I10 Hypertension type: essential hypertension BPH (benign prostatic hyperplasia) N40.0 Lower urinary tract symptom presence: symptoms absent Peripheral neuropathy G62.9 Peripheral neuropathy type: polyneuropathy, unspecified Morbid obesity E66.01 Dyslipidemia E78.5 Hyperglycemia R73.9 CKD (chronic kidney disease) stage 2, GFR 60-89 ml/min N18.2
[2020-04-10] MEDS: losartan 50 mg Tablet 100 MG PO (09:19)
[2020-04-10 11:03] LABS: Glucose Point of Care 305 mg/dL (70-110)
--- NOTE | 2020-04-10 11:10 | PC.CHAP ---
Pastoral Care Encounter/Spiritual Assessment Type of Contact [] Declined butadiene converter operator visit [] Patient/Family/Request visit [] Outpatient visit [] Follow-up visit [] Physician referral [] Code/Alert [x] Routine visit [] Staff referral [] Actively dying [] Patient sleeping [] Family support [] [] Out of room [] Palliative care [] [x] Receiving care in room [] Pre-surgical visit [] Trauma [] Long length of stay [] ICU visit [] Other: Relational/Emotional Strength [x] Patient feels connected with others/family/visitors/staff [] Distress [] Loneliness/isolation [] Abandonment Spirituality of Patient [x] Person of Radha [] Attends Druze of their Radha [x] Believes in Prayer [] Reads Bible or Zoroastrian materials [] There are Spiritual issues to be addressed Linen Aide Interventions [x] Prayer [x] Active listening [x] Non-anxious presence [x] Spiritual/emotional support [] Crisis/trauma care [x] Spiritual counseling [] Bereavement support [] Provided bereavement packet [] Provided Bible/devotional materials [] Provided toy/stuffed animal, coloring book to patient or family member [] Provided Communion [] Anointing/[place] [] Salvation [x] Completed spiritual assessment [] Other: Impact on Illness or Injury [] Angry [] Fearful [] Anxious [] Often cries [] Exhaustion [] Unable to work [] Unable to attend rastafarian [] Unable to walk/stand [] Unable to read [] Unable to drive [] Unable to eat/drink [] Unable to sleep [] Unable to be with family [] Patient intubated [] Other: Summary Came in with HBP, feels better has a good attitude maybe change in meds has to wait ans see what needsa to be done Time spent with patient 10 mins
[2020-04-10 16:59] LABS: Glucose Point of Care 119 mg/dL (70-110)
--- NOTE | 2020-04-10 18:02 | PC.NURSE ---
PATIENT BS WAS 116 ; NO INSULIN IS DUE PER SLIDING SCALE ; CONSULTED DR METCALF ABOUT 10 UNITS OF INSULIN THAT IS TO BE GIVEN TIDAC ; ORDERS WERE GIVEN TO HOLD 10 UNITS INSULIN
--- NOTE | 2020-04-10 18:18 | USCV_ITS ---
Rajeev Carter Age: 69 Gender: M : 1950 Exam Date: 04/10/2020 12:39 Ordering Phys: Sia Law MD Technologist: Frederick Giraldo [place]am [place] [facility] [place] Indication: BP: 139 / 82 HR: 77 Rhythm: Sinus Technical Quality: Adequate MEASUREMENTS (Male / Female) Normal Values 2D ECHO LV Diastolic Diameter PLAX 4.0 cm 4.2 - 5.9 / 3.9 - 5.3 cm LV Systolic Diameter PLAX 2.5 cm IVS Diastolic Thickness 1.5 cm 0.6 - 1.0 / 0.6 - 0.9 cm IVS Systolic Thickness 1.5 cm LVPW Diastolic Thickness 1.3 cm 0.6 - 1.0 / 0.6 - 0.9 cm LVPW Systolic Thickness 1.3 cm LVOT Diameter 2.0 cm LV Ejection Fraction 2D Teich 66.1 % LV Ejection Fraction MOD 2C 71.2 % LV Ejection Fraction 2C AL 72.5 % LA Diameter 4.4 cm LA Width 3.9 cm LA Height 5.6 cm RA Width 3.2 cm RA Height 5.0 cm M-MODE LV Diastolic Diameter MM 5.6 cm 4.2 - 5.9 / 3.9 - 5.3 cm LV Systolic Diameter MM 4.0 cm LV Ejection Fraction MM Teich 54.6 % IVS Diastolic Thickness MM 1.2 cm 0.6 - 1.0 / 0.6 - 0.9 cm IVS Systolic Thickness MM 1.6 cm LVPW Diastolic Thickness MM 1.4 cm 0.6 - 1.0 / 0.6 - 0.9 cm LVPW Systolic Thickness MM 1.9 cm RV Diastolic Diameter MM 2.1 cm Aortic Annulus Diameter 3.6 cm LA Ao Ratio MM 1.2 MV E Point Septal Separation 0.9 cm DOPPLER AV Peak Velocity 174.0 cm/s LVOT Peak Velocity 111.0 cm/s AV Area Cont Eq vti 2.0 cm squared AV Area Cont Eq pk 2.1 cm squared MV Area PHT 5.0 cm squared Mitral E to A Ratio 0.8 MV E' Velocity 10.0 cm/s Mitral E to MV E' Ratio 8.8 Mitral E to LV E' Lateral Ratio 8.1 Mitral E to LV E' Septal Ratio 9.8 TR Peak Velocity 217.0 cm/s TR Peak Gradient 18.9 mmHg TV Peak E Velocity 86.0 cm/s Right Atrial Pressure 3.0 mmHg Pulmonary Artery Systolic Pressu 21.8 mmHg FINDINGS Left Ventricle Normal left ventricular size and systolic function, EF 69 %. Mild left ventricular hypertrophy. No regional wall motion abnormalities. Right Ventricle The right ventricle is normal in size and function. Right Atrium The right atrium is normal in size. Left Atrium The left atrium is normal in size. Mitral Valve Mild mitral annular calcification. Aortic Valve No gross abnormalities noted Tricuspid Valve Trace tricuspid valve regurgitation. Pulmonic Valve Trace pulmonary valve regurgitation. Pericardium Normal pericardium without effusion. Aorta Normal ascending aorta dimension. CONCLUSIONS Normal left ventricular size and systolic function, EF 69 %. Mild left ventricular hypertrophy. No regional wall motion abnormalities. Trace tricuspid valve regurgitation. Trace pulmonary valve regurgitation. There is no pericardial effusion. There are no intracardiac masses. Dr Aric Castaneda MD [facility] (Electronically Signed) Final Date: 10 April 2020 23:25 S
[2020-04-10] MEDS: enoxaparin 40 mg/0.4 mL Syringe SUBCUT (18:25)
[2020-04-10] MEDS: atorvastatin 40 mg Tablet 80 MG PO (18:25)
[2020-04-10] MEDS: tamsulosin 0.4 mg Capsule PO (18:25)
--- NOTE | 2020-04-10 19:57 | PC.NURSE ---
Rounding: Patient resting in bed watching TV. Patient denies any pain at this time. Patient is alert and oriented. Denies any needs at this time.
[2020-04-10 20:06] LABS: Glucose Point of Care 214 mg/dL (70-110)
[2020-04-10] MEDS: insulin glargine 100 units/1 mL 10 UNIT SUBCUT (20:23)
[2020-04-10] MEDS: duloxetine 60 mg Capsule PO (20:23)
[2020-04-11] VITALS: BP 131/76; PULSE 71; RESP 19; TEMP 36.9; O2SAT 91
[2020-04-11 02:56] LABS: Basophils % 0.6 %; Eosinophils # 0.5 10^3/uL (0.0-0.8); Eosinophils % 7.3 %; Hemoglobin 14.1 g/dL (11.7-16.6); Lymphocytes # 2.5 10^3/uL (0.8-4.8); Lymphocytes % 34.4 %; Mean Corpuscular HGB Conc 33.6 g/dL (30.0-36.0); Mean Corpuscular Hemoglobin 29.8 pg (28.0-34.0); Mean Corpuscular Volume 88.8 fL (80-94); Mean Platelet Volume 10.1 fL (7.4-10.4); Monocytes # 0.6 10^3/uL (0.2-0.9); Monocytes % 8.5 %; Neutrophils # 3.56 10^3/uL (1.8-7.7); Neutrophils % 48.9 %; Nucleated Red Blood Cells % 0 %; Platelet Count 209 10^3/cmm (130-400); Red Blood Count 4.73 10^6/uL (4.1-5.3); Red Cell Distribution Width 12.1 % (12.1-15.1); White Blood Count 7.3 10^3/uL (4.0-10.0)
[2020-04-11 03:11] LABS: Anion Gap 15.3 (5-19); Blood Urea Nitrogen 10 mg/dL (8-23); Calcium 8.7 mg/dL (8.5-10.5); Carbon Dioxide 24 mmol/L (22-29); Chloride 100 mmol/L (98-107); Creatinine Clr Calc Pharmacy 103.3515; Glomerular Filtration Rate 83.4 mL/min (90-130); Glucose 179 mg/dL (65-115); Osmolality Calculated 282 mOsm/kg (285-295); Potassium 3.3 mmol/L (3.5-5.1); Sodium 136 mmol/L (136-145)
[2020-04-11 04:00] VITALS: BP 124/91; PULSE 86; RESP 13; TEMP 36.7; O2SAT 93
[2020-04-11 06:20] LABS: Glucose Point of Care 223 mg/dL (70-110)
--- NOTE | 2020-04-11 06:23 | PC.NURSE ---
End of shift: Patient had a uneventful shift. Patient has no complaints of pain. Vitals are stable and patient is alert and oriented.
[2020-04-11 07:09] VITALS: BP 131/83; PULSE 73; RESP 20; TEMP 36.7; O2SAT 92
--- NOTE | 2020-04-11 09:08 | P.DS_ITS ---
Discharge Providers Date of Admission: 04/10/20 11:02 Date of Discharge: April 11, 2020 Attending Provider at Admission: Sia Law MD Attending Provider at Discharge: Sia Law MD Consults: None Primary Care Provider: Toi Smyth DO Diagnoses at Discharge Discharge Diagnosis (1) Hypertensive urgency: Status: Resolved Problem details: -Presented with symptoms of exertional chest discomfort, and feeling like he was outside his body -Has a known history of hypertension -Currently on nitroglycerin drip, on oral antihypertensive regimen -Continued close monitoring of vital signs -noted troponins with no significant delta; serial ECGs -may need outpatient nuclear stress test -telemetry monitoring -Echo ordered -noted A1c, lipid panel, TSH -CXR: unremarkable (2) Chest pain: Status: Resolved Problem details: -likely related to hypertensive urgency but may benefit from outpatient nuclear stress testing once blood pressure more optimally controlled Qualifiers: Chest pain type: unspecified Qualified Code(s): R07.9 - Chest pain, unspecified (3) Hypertension: Status: Chronic Problem details: -Hypertensive urgency initially, off nitroglycerin drip -continue to monitor vital signs especially blood pressure -continue oral antihypertensive regimen Qualifiers: Hypertension type: essential hypertension Qualified Code(s): I10 - Essential (primary) hypertension (4) BPH (benign prostatic hyperplasia): Status: Chronic Problem details: -on tamsulosin Qualifiers: Lower urinary tract symptom presence: symptoms absent Qualified Code(s): N40.0 - Benign prostatic hyperplasia without lower urinary tract symptoms (5) Peripheral neuropathy: Status: Chronic Problem details: -on Cymbalta Qualifiers: Peripheral neuropathy type: polyneuropathy, unspecified Qualified Code(s): G62.9 - Polyneuropathy, unspecified (6) Morbid obesity: Status: Chronic Problem details: -BMI-39 kg/m2 (7) Dyslipidemia: Status: Chronic Problem details: -abnormal lipid panel noted -on statin (8) Hyperglycemia: Status: Acute Problem details: -No prior history of DM -Noted significant hyperglycemia on labs today with blood sugar of 444, low serum ketones, normal pH, not in DKA -A1c-11.5 -Accu-Cheks, ISS, hypoglycemia precautions -add meal time and long acting insulin (9) CKD (chronic kidney disease) stage 2, GFR 60-89 ml/min: Status: Chronic Problem details: -baseline Cr is around 1.0 -renally dose meds, avoid nephrotoxins Reason for Visit Reason for Visit: sent by wa Hospital Course Hospital Course: Patient was admitted to the cardiac stepdown unit due to need for close monitoring of his blood pressure with noted hypertensive urgency on admission. He had ready been started on nitroglycerin drip in the ER which was continued. This was weaned off as blood pressure improved. His oral antihypertensive regimen was resumed as well. Blood pressure has improved and nitroglycerin drip was weaned off yesterday afternoon. He has remained hemodynamically stable. Echo was done as noted above with ejection fraction of 69% and mild left ventricular hypertrophy noted. He did complain of some chest discomfort on admission that resolved during his hospitalization. Troponins were noted with no significant delta, no ischemic changes noted on EKG or telemetry. However in light of his symptoms, advanced age and underlying comorbidities will arrange for outpatient nuclear stress testing. Patient was found to be hyperglycemic with A1c of 11.5 reflecting new diagnosis of diabetes. He was treated with insulin during his hospital stay but is quite uncomfortable continuing this on transition home so we will discharge on oral hypoglycemic agents. We will start with low-dose metformin to determine if able to tolerate this prior to escalating dose if needed. Discussed need to monitor his blood sugars at home as welll as his blood pressure and keep a log for review with his primary care provider. Home health services arranged particularly for nursing home to continue to provide appropriate education and to ensure that patient is able to manage monitoring of his blood pressure and blood glucose in light of new diagnosis of diabetes. Discharge Summary: -Patient to follow up with primary care physician within 1 week Physical Exam Const: COMMON NORMALS: no acute distress, patient oriented x3 and alert GENERAL APPEARANCE: cooperative and comfortable NUTRITIONAL APPEARANCE: obese morbidly obese ORIENTATION/CONSCIOUSNESS: Yes awake HENMT: COMMON NORMALS: normocephalic, atraumatic and hearing grossly normal bilaterally HEAD & SCALP: normocephalic and atraumatic MOUTH: moist mucous membranes abnormal Details: parched Eye: COMMON NORMALS: Equal, round and reactive pupils present, EOMs intact bilaterally and conjunctivae normal CONJUNCTIVA: Yes conjunctivae normal PUPIL: Yes Equal, round and reactive pupils present Neck/C-Spine: COMMON NORMALS: full ROM GENERAL: Yes normal visual inspection and Yes trachea midline Resp: COMMON NORMALS: normal respiratory effort, No retractions, No use of accessory muscles and clear to auscultation bilaterally EFFORT & INSPECTION: Yes able to speak in complete sentences, Yes symmetric chest movement and No tachypneic AUSCULTATION: clear to auscultation bilaterally Cardio: COMMON NORMALS: regular rate, regular rhythm, S1 normal heart sound present, S2 normal heart sound present and No murmurs present (Cardio) RATE: regular rate RHYTHM: regular rhythm HEART SOUNDS: S1 normal heart sound present and S2 normal heart sound present OTHER: -Blood pressure improved GI: COMMON NORMALS: Normal to inspection, nondistended, normoactive bowel sounds present, Soft to palpation and non-tender INSPECTION: Yes central obesity PALPATION: Yes Soft to palpation Extremity: COMMON NORMALS: normal to inspection, full ROM and no clubbing, cyanosis or edema; negative for no pedal edema Neuro: COMMON NORMALS: patient oriented x3, moves all extremities, no focal motor deficits and no sensory deficits noted SENSORIUM/ORIENTATION: Yes alert Psych: COMMON NORMALS: mental status grossly normal, Normal thought process present, cooperative, normal affect and speech normal SPEECH: Yes normal speech THOUGHT PROCESS: Normal thought process present Skin: COMMON NORMALS: no rashes or lesions noted, no jaundice, no petechiae and no mottling GENERAL SKIN EXAM: no rashes or lesions noted Discharge Data Data Completed and Pending: Completed Studies During Hospitalization Category Date Time Status XR chest 1V shonna ble [id number] Stat Exams 04/09/20 13:01 Completed CV echo complete* [id number] Routine Ultrasound 04/10/20 18:18 Completed Labs from last 24 hours 04/11/20 04/11/20 04/11/20 06:12 02:30 02:30 WBC 7.3 RBC 4.73 Hgb 14.1 Hct 42.0 MCV 88.8 MCH 29.8 MCHC 33.6 RDW 12.1 Plt Count 209 MPV 10.1 Neut % (Auto) 48.9 Lymph % (Auto) 34.4 [place] % (Auto) 8.5 Eos % (Auto) 7.3 Baso % (Auto) 0.6 Neut # (Auto) 3.56 Lymph # (Auto) 2.5 [place] # (Auto) 0.6 Eos # (Auto) 0.5 Baso # (Auto) 0.0 Nucleated RBC % (a uto) 0 Nucleated RBCs # 0.0 Sodium 136 Potassium 3.3 L Chloride 100 Carbon Dioxide 24 Anion Gap 15.3 BUN 10 Creatinine 0.9 GFR Calculation 83.4 L Glucose 179 H POC Glucose 223 Calculated Osmolal ity 282 L Calcium 8.7 04/10/20 04/10/20 04/10/20 19:56 16:54 10:42 WBC RBC Hgb Hct MCV MCH MCHC RDW Plt Count MPV Neut % (Auto) Lymph % (Auto) [place] % (Auto) Eos % (Auto) Baso % (Auto) Neut # (Auto) Lymph # (Auto) [place] # (Auto) Eos # (Auto) Baso # (Auto) Nucleated RBC % (a uto) Nucleated RBCs # Sodium Potassium Chloride Carbon Dioxide Anion Gap BUN Creatinine GFR Calculation Glucose POC Glucose 214 119 305 Calculated Osmolal ity Calcium Vitals: Last Vital Signs Temp 98.1 F 04/11/20 07:09 Pulse 73 04/11/20 07:09 Resp 20 H 04/11/20 07:09 BP 131/83 04/11/20 07:09 Pulse Ox 92 04/11/20 07:09 Discharge Plan Discharge Patient Disposition: Home Health Service Condition: Stable Prescriptions: New metformin 500 mg tablet 500 mg PO BID 30 Days Qty: 60 RF: 0 Continued Flomax 0.4 mg Capsule 0.4 mg PO QPM RF: 0 Cymbalta 60 mg Capsule,Delayed Release(Dr/Ec) 60 mg PO BEDTIME RF: 0 Sodium Fluoride 5000 Plus 1.1 % Cream 1 applic DENTAL DAILY RF: 0 Vitamin D3 50 mcg (2,000 unit) Capsule 50 mcg PO DAILY RF: 0 potassium chloride 20 mEq Tablet Extended Release 20 meq PO DAILY RF: 0 Cbd Oil 2 - 3 drp PO DAILY RF: 0 losartan-hydrochlorothiazide 100-25 mg Tablet 1 tab PO DAILY Qty: 30 RF: 0 amlodipine 10 mg Tablet 10 mg PO DAILY 30 Days Qty: 30 RF: 0 metoprolol tartrate 50 mg Tablet 75 mg PO BID Qty: 30 RF: 0 Changed Crestor 40 mg Tablet 40 mg PO QPM Qty: 30 RF: 0 Discontinued amitriptyline 50 mg Tablet 50 mg PO BEDTIME PRN (Reason: unknown) RF: 0 gabapentin 300 mg Capsule See Rx Instructions .ROUTE .COMPLEX RF: 0 Discharge Orders: Discharge Order (Routine); Ordered 04/11/20 Ordered By: Sia Law Other Ambulatory Orders: Sestamibi Stress Test Request (Routine) Timeframe: 2 Weeks Facility: [facility] - Location: Cardiac Diagnostic Laboratory Ordered By: Sia Law Referrals: Toi Smyth DO [Primary Care Provider] - 4-7 days (You have an follow-up appointment with Dr. Smyth on April 16 at 1: 00p.m. If you have any or need to reschedule. Please call Also, your Stress Test is scheduled on , April 19 with Check-in at 8:00a.m. If youo have any questions or need to reschedule. Please call [phone]) Discharge Diet: Cardiac and Diabetic Discharge Activity: Increase activity as tolerated Patient Instructions: Metformin (By mouth), Hypertension, Diabetic Hyperglycemia (DC) Activity Restrictions/Additional Instructions: -Please buy a glucose monitoring kit over the counter to start monitoring your blood glucose daily due to new diagnosis of diabetes -Please keep a log for review with your regular doctor -Please monitor your blood pressure at least 2-3 times/week and keep a log for review with your regular doctor Discharge Date/Time: 04/11/20 10:15 Discharge Attestations Time Spent in Discharge Care*: greater than 30 min Specific Discharge Activities: Specific discharge activities: educating patient, discussing with correctional casework specialist/social workers/dc planners, denton guerrero/other paperwork and evaluating patient/reviewing data Status at Discharge: Cognitive status at discharge: cognitively intact , Behavioral status at discharge: cooperative and independent in ADL's , Functional status at discharge: independent ambulation Overall status at dis charge: patient is progressing back to baseline Quality Metrics Clinical Quality Measures During this hospital stay, did patient experience: None Coding Level of Care Code Acute Technical Training Specialist for g Fwd Exam Comprehensive Diagnoses Hypertensive urgency I16.0 Chest pain R07.9 Chest pain type: unspecified Hypertension I10 Hypertension type: essential hypertension BPH (benign prostatic hyperplasia) N40.0 Lower urinary tract symptom presence: symptoms absent Peripheral neuropathy G62.9 Peripheral neuropathy type: polyneuropathy, unspecified Morbid obesity E66.01 Dyslipidemia E78.5 Hyperglycemia R73.9 CKD (chronic kidney disease) stage 2, GFR 60-89 ml/min N18.2
[2020-04-11] MEDS: metoprolol tartrate 50 mg Tablet 75 MG PO (09:16)
[2020-04-11] MEDS: amlodipine 10 mg Tablet PO (09:16)
[2020-04-11] MEDS: cholecalciferol (vitamin D3) 1,000 unit Tablet 2000 UNIT PO (09:16)
[2020-04-11] MEDS: hydroCHLOROthiazide 25 mg Tablet PO (09:16)
[2020-04-11] MEDS: potassium chloride ER 10 mEq Tablet 20 MEQ PO (09:17)
[2020-04-11] MEDS: losartan 50 mg Tablet 100 MG PO (09:17)
[2020-04-11] MEDS: potassium chloride ER 10 mEq Tablet 40 MEQ PO (09:26)
[2020-04-11 09:30] VITALS: BP 126/84; PULSE 76; RESP 16; O2SAT 94
[2020-04-11 09:42] VITALS: BP 131/83; PULSE 73; RESP 20; TEMP 36.7; O2SAT 92
== END 2020-04-11 10:15 | disposition home health service (06) | DRG 305 ==
LOC: ER 17:37 → CSU 17:51
PROVIDERS: Emergency Medicine; Admitting Provider Family Medicine; PCP Emergency Medicine Emergency Medical Services; Visit Provider Family Medicine
DX: I16.0 Hypertensive urgency (principal); E66.01 Morbid (severe) obesity due to excess calories; N18.2 Chronic kidney disease, stage 2 (mild); I12.9 Hypertensive chronic kidney disease with stage 1 through stage 4 chronic kidney disease, or unspecified chronic kidney disease; E11.22 Type 2 diabetes mellitus with diabetic chronic kidney disease; Z68.38 Body mass index [BMI] 38.0-38.9, adult; N40.0 Benign prostatic hyperplasia without lower urinary tract symptoms; E11.65 Type 2 diabetes mellitus with hyperglycemia; E78.5 Hyperlipidemia, unspecified; E11.42 Type 2 diabetes mellitus with diabetic polyneuropathy; M19.90 Unspecified osteoarthritis, unspecified site; Z96.652 Presence of left artificial knee joint; Z87.891 Personal history of nicotine dependence
CPT/HCPCS: 12345; 36415; 36416; 36600; 71045; 80048; 80053; 80061; 81001; 82009; 82550; 82803; 82962; 83036; 83721; 83735; 84439; 84443; 84484; 85025; 85378; 85610; 93005; 93306; 96372; 96375; 99283; G0378; J1650; J1815 ×2; J3490; J7030

== ENCOUNTER 2020-04-19 07:25 | Outpatient (CLI) | payer MEDICARE, OTHER, SELFPAY ==
--- NOTE | 2020-04-19 07:56 | ECG_ITS ---
[facility] Test Date: 2020-04-19 Pat Name: Rajeev Carter Department: Room: Gender: Male Department Supervisor: Fabi Jane : 1950 Requested By: Viktor Wilkins Order Number: [id number] Jax MD: Madeline Viramontes M.D. Interpretive Statements NAME OF STUDY: LEXISCAN SESTAMIBI STRESS TEST INDICATION: Chest Pain PROCEDURE: At the baseline, the blood pressure was 121/83 mmHg with a heart rate of 80 bpm. The electrocardiogram showed normal sinus rhythm, normal axis with poor anterior R wave progression. Nonspecific T wave inversion. The Lexiscan was infused over a period of 20 seconds. A total of 0.4 milligrams of Lexiscan was infused. The stress phase was continued for a total of 5 minutes. Heart rate at the end of the stress phase was 93 bpm with a blood pressure of 121/83 mmHg. The EKG at the peak infusion revealed sinus rhythm at 93 [address]pm with no significant [address]-T wave changes. This study was terminated due to protocol completion. Sestamibi was injected 20 seconds after the Lexiscan infusion. Blood pressure at the end of the recovery phase was 123/71 mmHg with a heart rate of 90 beats per minute. CONCLUSION: 1. No significant EKG changes with the LexiScan infusion. 2. No LexiScan induced chest pain or cardiac arrhythmia. 3. Normal blood pressure and heart rate response. 4. Sestamibi/sestamibi perfusion scan pending; see separate report. Electronically Signed On 04-20-2020 16:49:18 CDT by Madeline Viramontes M.D. [id number]
--- NOTE | 2020-04-19 07:56 | NMCV_ITS ---
NM kian perf SPECT r/s* [id number] Rajeev Carter Age: 69 Gender: M : 1950 Exam Date: 04/19/2020 08:37 Ordering Phys: Viktor Nugent MD Technologist: LISSA Quach Exam Location: [facility] [place] Indications: HYPERTENSIVE URGENCY, CHEST PAIN STRESS TEST Please see separate stress test report in [facility] for full findings IMAGE PROTOCOL Rest/Stress 1 Lexiscan Day Radiopharmaceutical Dose (mCi) Administration Site Administered by Rest: Tc-99m 10.6 IV LISSA Loza Sestamibi Stress:Tc-99m 32.0 IV LISSA Loza Sestamibi Rest: 19-Apr-2020 60 Discovery 630 Stress: 19-Apr-2020 30 Discovery 630 0.4mg Lexiscan. Images obtained in supine and prone position. SPECT RESULTS Technical Quality: Excellent Raw Data Analysis: Normal Image Corrections: No attenuation or motion correction applied Summed Stress Score: 0 Summed Rest Score: 3 Summed Difference Score: 0 PERFUSION FINDINGS Myocardial perfusion imaging revealing a small to moderate area of decreased tracer uptake in the basal and mid inferior wall region, with no significant reversibility. FUNCTIONAL RESULTS (calculated via Gated SPECT) Stress Image LV EF (%): 64 Stress EDV (mL):109 TID: 1.01 Stress ESV (mL):39 FUNCTIONAL FINDINGS: Segmental wall motion analysis revealing no gross wall motion abnormalities IMPRESSIONS 1. Myocardial perfusion imaging revealing a small to moderate area of persistent decreased uptake in the basal and mid inferior wall region, suggestive of myocardial scarring versus attenuation artifact. 2. Normal LV ejection fraction 64%. 3. LV wall motion analysis revealing no gross wall motion normalities. 4. Normal LV volume. No significant coronary ischemia, based on the above findings Dr Aric Castaneda MD [facility] (Electronically Signed) Final Date: 19 April 2020 14:25 S
[2020-04-19 07:57] VITALS: BMI 36.8
[2020-04-19 09:35] VITALS: BP 132/85; PULSE 100
[2020-04-19] MEDS: regadenoson 0.4 Mg/5 ml Syringe IVP (09:35)
== END 2020-04-19 07:26 | disposition home or self-care (01) ==
PROVIDERS: PCP Emergency Medicine Emergency Medical Services; Visit Provider Internal Medicine
DX: R07.9 Chest pain, unspecified (principal); I16.0 Hypertensive urgency
CPT/HCPCS: 78452; 93017; A9500; J2785

== ENCOUNTER → 2020-07-24 14:28 | Outpatient (BNVA) | payer OTHER, SELFPAY | PROVIDERS: PCP Emergency Medicine Emergency Medical Services; Referring Provider Emergency Medicine Emergency Medical Services; Visit Provider Podiatrist Foot & Ankle Surgery | DX: M79.671 Pain in right foot (principal); M79.672 Pain in left foot | CPT/HCPCS: 73630 ==

== ENCOUNTER 2020-08-20 07:57 | Outpatient (CLI) | payer OTHER, SELFPAY ==
--- NOTE | 2020-08-20 | USCV_ITS ---
Rajeev Carter Age: 69 Gender: M : 1950 Exam Date: 08/20/2020 08:24 Ordering Phys: Jose Zaidi DPM Technologist: Frederick Giraldo [place] [facility] [place]: BLE SWELLING HISTORY: Lower extremity edema. PROCEDURES: The venous duplex Doppler examination of both lower extremities was performed in the standard fashion. The following venous structures were evaluated: common femoral vein, profunda vein, proximal portion of the greater saphenous vein, superficial femoral vein, and the popliteal vein. FINDINGS: All veins examined appear free of thrombus. No filling defects on color Doppler flow analysis. Vein flow and caliber vary with respiration. Increase in venous flow with augmentation. All veins appear compressible.. CONCLUSIONS No evidence of right lower extremity DVT. No evidence of left lower extremity DVT. Elan Stern MD (Electronically Signed) Final Date: 20 August 2020 10:46 S
== END 2020-08-20 07:58 | disposition home or self-care (01) ==
PROVIDERS: PCP Emergency Medicine Emergency Medical Services; Visit Provider Podiatrist Foot & Ankle Surgery
DX: R09.89 Other specified symptoms and signs involving the circulatory and respiratory systems (principal); M79.89 Other specified soft tissue disorders
CPT/HCPCS: 93970

== ENCOUNTER 2020-08-21 07:52 | Outpatient (CLI) | payer OTHER, SELFPAY ==
--- NOTE | 2020-08-21 07:58 | USCV_ITS ---
Rajeev Carter Age: 69 Gender: M : 1950 Exam Date: 08/21/2020 07:49 Ordering Phys: Jose Zaidi DPM Technologist: Ozzy Hamlin [place]am [place] [facility] [place] [facility] [place] Indication: DEMINISHED PULSES RIGHT LEFT Brachial 140.00 mmHg Brachial 145.00 mmHg Pressure (mmHg) Waveform Pressure (mmHg) Waveform 164.00 Above Knee 142.00 140.00 Below Knee 151.00 129.00 CLEANING STAFF SUPERVISOR 130.00 147.00 DPA 175.00 1.01 Ankle/Brachial Index 1.21 108.00 Pre-Exercise Toe Pressure 160.00 Pre-Exercise Toe/Brachial Index 1.10 0.74 FINDINGS Normal resting ABIs bilaterally Normal resting TBI's bilaterally PVR waveforms show some blunting of the dicrotic notch CONCLUSIONS No evidence of any significant arterial obstruction, based on the above findings. Dr Aric Castaneda MD [facility] (Electronically Signed) Final Date: 22 August 2020 17:09 S
== END 2020-08-21 07:53 | disposition home or self-care (01) ==
LOC: RAD 07:55
PROVIDERS: PCP Emergency Medicine Emergency Medical Services; Visit Provider Podiatrist Foot & Ankle Surgery
DX: I73.9 Peripheral vascular disease, unspecified (principal)
CPT/HCPCS: 93923

== ENCOUNTER 2020-11-20 10:37 | Emergency (ER) | payer OTHER, MEDICARE, SELFPAY ==
[2020-11-20] VITALS (10 sets, daily range): BP systolic 123–151; BP diastolic 64–87; PULSE 18–80; RESP 16–55; TEMP 36.8; O2SAT 93–97; BMI 38.6
--- NOTE | 2020-11-20 11:26 | PC.NURSE ---
patient denied any chest pain at this time. stated i feel pretty good now . no acute distress noted
--- NOTE | 2020-11-20 11:46 | XRR_ITS ---
PROCEDURE INFORMATION: Exam: XR Chest Exam date and time: 11/20/2020 11:51 AM Age: 70 years old Clinical indication: Shortness of breath; Chest pain; Type not specified; Additional info: NAHEED Dubose TECHNIQUE: Imaging protocol: XR of the chest Views: 1 view. COMPARISON: CR XR chest 1V portable [id number] 04/09/2020 1:24 PM FINDINGS: Lungs: Unremarkable. No consolidation. Pleural spaces: Unremarkable. No pleural effusion. No pneumothorax. Heart/Mediastinum: Unremarkable. No cardiomegaly. Bones/joints: Unremarkable. XR/XR chest 1V portable [id number] IMPRESSION: No acute findings.
--- NOTE | 2020-11-20 11:46 | ECG_ITS ---
[facility] Test Date: 2020-11-20 Pat Name: Rajeev Carter Department: Room: Gender: Male Channel Director: : 1950 Requested By: Maite Durant I Order Number: [id number] Reading MD: ALEXEI MANN Measurements Intervals [place] Rate: 57 P: 43 NH: 215 QRS: -23 QRSD: 104 T: 14 QT: 431 QTc: 423 Interpretive Statements SINUS BRADYCARDIA WITH FIRST DEGREE AV BLOCK BORDERLINE LEFT AXIS DEVIATION [QRS AXIS < -20] Compared to ECG 04/09/2020 18:56:32 First degree AV block now present Sinus rhythm no longer present Myocardial infarct finding no longer present Electronically Signed On 11-20-2020 19:58:08 CATERING DRIVER by ALEXEI MANN [email or web address]
[2020-11-20 11:59] LABS: Basophils # 0.1 10^3/uL (0.0-0.1); Basophils % 0.7 %; Eosinophils # 0.7 10^3/uL (0.0-0.8); Eosinophils % 9.1 %; Hematocrit 43.7 % (42.0-52.0); Hemoglobin 15.1 g/dL (11.7-16.6); Lymphocytes # 2.4 10^3/uL (0.8-4.8); Lymphocytes % 30.7 %; Mean Corpuscular HGB Conc 34.6 g/dL (30.0-36.0); Mean Corpuscular Hemoglobin 29.8 pg (28.0-34.0); Mean Corpuscular Volume 86.4 fL (80-94); Mean Platelet Volume 9.8 fL (7.4-10.4); Monocytes # 0.5 10^3/uL (0.2-0.9); Monocytes % 6.6 %; Neutrophils # 4.05 10^3/uL (1.8-7.7); Neutrophils % 52.6 %; Nucleated Red Blood Cells % 0 %; Platelet Count 285 10^3/cmm (130-400); Red Blood Count 5.06 10^6/uL (4.1-5.3); Red Cell Distribution Width 13.2 % (12.1-15.1); White Blood Count 7.7 10^3/uL (4.0-10.0)
[2020-11-20 12:10] LABS: INR 0.96 (0.8-1.2)
[2020-11-20 12:13] LABS: D Dimer 0.45 ug/mIFEU (0-0.59); Troponin(5th) Baseline 12 ng/L (0-15)
[2020-11-20 12:21] LABS: Alanine Aminotransferase 20 U/L (0-41); Albumin Level 4.2 g/dL (3.5-5.2); Alkaline Phosphatase 109 IU/L (40-130); Anion Gap 14.6 (5-19); Aspartate Amino Transferase 17 U/L (0-40); Blood Urea Nitrogen 15 mg/dL (8-23); Carbon Dioxide 24 mmol/L (22-29); Chloride 100 mmol/L (98-107); Globulin 2.5 g/dL (1.3-4.6); Glucose 229 mg/dL (65-115); Lipase 22 U/L (13-60); NT Pro B Type Natriuretic Pept 87 pg/mL (0-125); Osmolality Calculated 288 mOsm/kg (285-295); Potassium 3.6 mmol/L (3.5-5.1); Sodium 135 mmol/L (136-145); Total Bilirubin 0.6 mg/dL (0.15-1.2); Total Protein 6.7 g/dL (6.6-8.7)
[2020-11-20] MEDS: albuterol 8 gm MDI 4 PUFF INHALATION (12:25)
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
--- NOTE | 2020-11-20 13:36 | PC.NURSE ---
patient denied any chest pain or shortness of breath at this time.
[2020-11-20 13:37] LABS: Influenza A by IFA Negative (Negative); Influenza B by IFA Negative (Negative); SARS Covid-2 Antigen Negative (Negative)
[2020-11-20 14:12] LABS: Troponin 5 2HR 10.17 ng/L (0-15)
[2020-11-20 14:33] LABS: Troponin 5 2HR Delta -1.83 ABS# (0-10)
--- NOTE | 2020-11-20 15:08 | PC.NURSE ---
patient stated chest pain comes and goes, denied any chest pain at this time.
== END 2020-11-20 16:09 | disposition home or self-care (01) ==
PROVIDERS: Emergency Provider Family Medicine; PCP Emergency Medicine Emergency Medical Services
DX: J44.1 Chronic obstructive pulmonary disease with (acute) exacerbation (principal); Z79.84 Long term (current) use of oral hypoglycemic drugs; I12.9 Hypertensive chronic kidney disease with stage 1 through stage 4 chronic kidney disease, or unspecified chronic kidney disease; N18.2 Chronic kidney disease, stage 2 (mild); E78.5 Hyperlipidemia, unspecified; Z87.891 Personal history of nicotine dependence
CPT/HCPCS: 36415; 71045; 80053; 83690; 83880; 84484; 85025; 85378; 85610; 87426; 87804; 93005; 94640; 99284; J3535

== ENCOUNTER 2021-04-09 11:15 | Emergency (ER) | payer OTHER, MEDICARE, SELFPAY ==
[2021-04-09 11:44] VITALS: BP 198/103; PULSE 99; RESP 18; TEMP 37.3; O2SAT 97; BMI 40.4
[2021-04-09 11:54] VITALS: BP 169/110; PULSE 99; RESP 18; O2SAT 93
--- NOTE | 2021-04-09 11:57 | XRR_ITS ---
PROCEDURE INFORMATION: Exam: XR Left Shoulder Exam date and time: 04/09/2021 11:57 AM Age: 70 years old Clinical indication: Pain; Shoulder; Left; Additional info: Shoulder pain TECHNIQUE: Imaging protocol: XR Left shoulder. Views: 2 or more views. COMPARISON: CR XR chest 1V portable [id number] 11/20/2020 11:48 AM FINDINGS: Bones/joints: No acute fracture. No dislocation. Moderate hypertrophic changes of the acromioclavicular joint. Small osteophytes at the left glenoid. Multilevel degenerative changes of varying severity in the visualized spine. Normal bone mineralization. Soft tissues: No soft tissue swelling. No radiopaque foreign body. XR/XR shoulder LT min 2V* [id number] IMPRESSION: 1. No acute fracture. Followup imaging recommended in 7-14 days if clinical concern for fracture persists. 2. Moderate hypertrophic changes of the acromioclavicular joint. 3. Small osteophytes at the left glenoid.
--- NOTE | 2021-04-09 11:57 | PC.NURSE ---
Patient presents with complaint of left shoulder dislocation after falling last night at 2230. Reports that he presented to [facility] and was sent to ER due to dislocation.
--- NOTE | 2021-04-09 11:58 | XRR_ITS ---
PROCEDURE INFORMATION: Exam: XR Chest Exam date and time: 04/09/2021 11:58 AM Age: 70 years old Clinical indication: Other: Reduced breath sounds TECHNIQUE: Imaging protocol: XR of the chest. Views: 1 view. COMPARISON: CR XR chest 1V portable [id number] 11/20/2020 11:48 AM FINDINGS: Lungs: Lungs are clear bilaterally. Pleural spaces: No pleural effusion. No pneumothorax. Heart/Mediastinum: The cardiac silhouette and mediastinal contours are unremarkable. Bones/joints: Multilevel degenerative changes of varying severity in the visualized spine. Degenerative changes in the left shoulder. XR/XR chest 1V portable [id number] IMPRESSION: 1. No acute cardiopulmonary process. 2. Incidental/nonacute findings are listed in the report.
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
[2021-04-09 13:00] VITALS: BP 193/118; PULSE 82; RESP 18; O2SAT 93
[2021-04-09 13:33] LABS: SARS Covid-2 Antigen Negative (Negative)
[2021-04-09 14:10] VITALS: BP 174/89; PULSE 109; RESP 18; O2SAT 94
== END 2021-04-09 14:12 | disposition home or self-care (01) ==
PROVIDERS: Emergency Provider Family Medicine; PCP Emergency Medicine Emergency Medical Services
DX: S40.012A Contusion of left shoulder, initial encounter (principal); I12.9 Hypertensive chronic kidney disease with stage 1 through stage 4 chronic kidney disease, or unspecified chronic kidney disease; N18.2 Chronic kidney disease, stage 2 (mild); E11.22 Type 2 diabetes mellitus with diabetic chronic kidney disease; E78.5 Hyperlipidemia, unspecified; E66.9 Obesity, unspecified; Z68.41 Body mass index [BMI] 40.0-44.9, adult; J44.9 Chronic obstructive pulmonary disease, unspecified; Z79.84 Long term (current) use of oral hypoglycemic drugs; Z87.891 Personal history of nicotine dependence; W01.0XXA Fall on same level from slipping, tripping and stumbling without subsequent striking against object, initial encounter; Y92.009 Unspecified place in unspecified non-institutional (private) residence as the place of occurrence of the external cause
CPT/HCPCS: 71045; 73030; 87426; 99283

== ENCOUNTER 2022-02-24 23:38 | Emergency (ER) | payer OTHER, MEDICARE, SELFPAY ==
[2022-02-24 23:57] VITALS: BMI 32.4
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
[2022-02-25] MEDS: fluorescein 1 mg Strip EYE-BOTH (00:08)
[2022-02-25] MEDS: neomycin-poly-dex Op 5 mL Btl 2 DROP EYE-BOTH (00:08)
[2022-02-25] MEDS: tetracaine 0.5% Op Soln 4 mL Btl 1 DROP EYE-BOTH (00:09)
== END 2022-02-25 00:54 | disposition home or self-care (01) ==
PROVIDERS: Emergency Provider Nurse Practitioner Family; PCP Emergency Medicine Emergency Medical Services
DX: H16.133 Photokeratitis, bilateral (principal); W89.8XXA Exposure to other man-made visible and ultraviolet light, initial encounter
CPT/HCPCS: 99283

== ENCOUNTER → 2023-01-20 09:40 | Outpatient (BNVA) | payer OTHER, MEDICARE, SELFPAY | PROVIDERS: PCP Emergency Medicine Emergency Medical Services; Visit Provider Podiatrist Foot & Ankle Surgery | DX: M21.41 Flat foot [pes planus] (acquired), right foot (principal); M21.42 Flat foot [pes planus] (acquired), left foot; E11.42 Type 2 diabetes mellitus with diabetic polyneuropathy; M77.41 Metatarsalgia, right foot; M77.42 Metatarsalgia, left foot | CPT/HCPCS: 99213 ==

== ENCOUNTER → 2023-03-25 08:25 | Outpatient (BNVA) | payer OTHER, SELFPAY | PROVIDERS: PCP Emergency Medicine Emergency Medical Services; Visit Provider Podiatrist Foot & Ankle Surgery | DX: M21.41 Flat foot [pes planus] (acquired), right foot (principal); M21.42 Flat foot [pes planus] (acquired), left foot; E11.42 Type 2 diabetes mellitus with diabetic polyneuropathy; M77.40 Metatarsalgia, unspecified foot; I73.9 Peripheral vascular disease, unspecified | CPT/HCPCS: 99213 ==

== ENCOUNTER 2023-06-18 15:45 | Emergency (ER) | payer OTHER, SELFPAY ==
[2023-06-18] VITALS (7 sets, daily range): BP systolic 126–200; BP diastolic 91–138; PULSE 86–114; RESP 16; TEMP 36.7; O2SAT 95–97; BMI 36.9
--- NOTE | 2023-06-18 15:55 | ECG_ITS ---
[facility] Test Date: 2023-06-18 Pat Name: Rajeev Carter Department: Room: Gender: Male C Software Developer: : [id number] Requested By: Gregory Lucas Order Number: [id number] Jax MD: Madeline Viramontes M.D. Measurements Intervals [place] Rate: 114 P: 0 RI: 0 QRS: -54 QRSD: 100 T: 49 QT: 335 QTc: 462 Interpretive Statements SINUS TACHYCARDIA WITH FIRST DEGREE AV BLOCK LEFT ANTERIOR FASCICULAR BLOCK [QRS AXIS <= -45, QR IN I, RS IN II] Compared to ECG 11/20/2020 10:56:20 Left anterior fascicular block now present Sinus bradycardia no longer present First degree AV block no longer present Electronically Signed On 06-19-2023 11:00:49 CDT by Madeline Viramontes M.D. [email or web address]
--- NOTE | 2023-06-18 16:03 | PC.PHAR ---
pts visitor and pt do not know home meds- pts visitor id going to go get home medications and bring back with her- also faxed [facility] for med list
--- NOTE | 2023-06-18 16:06 | XR_ITS ---
WS: [id number] Portable AP upright chest, 06/18/2023 Clinical Data: dyspnea/cough Comparison: Portable chest, 04/09/2021 Findings: No nodules, masses or effusions are seen. The heart is normal. The pulmonary vascularity is not increased. No pneumonia or pneumothorax is seen. The aortic arch and descending thoracic aorta s how mild tortuosity. Monitor leads are on the chest wall. Impression: Atherosclerosis.
[2023-06-18 16:35] LABS: Basophils % 0.4 %; Eosinophils # 0.4 10^3/uL (0.0-0.8); Eosinophils % 3.7 %; Hematocrit 52.4 % (37-53); Lymphocytes # 2.5 10^3/uL (0.8-4.8); Lymphocytes % 25.1 %; Mean Corpuscular HGB Conc 34.2 g/dL (30-55); Mean Corpuscular Hemoglobin 29.3 pg (27-33); Mean Corpuscular Volume 85.9 fl (82-101); Mean Platelet Volume 9.6 fL (7.4-10.4); Monocytes # 0.9 10^3/uL (0.2-0.9); Neutrophils # 6.06 10^3/uL (1.8-7.7); Neutrophils % 61.6 %; Nucleated Red Blood Cells % 0 %; Platelet Count 258 10^3/cmm (157-399); White Blood Count 9.83 10^3/uL (3.29-11.43)
[2023-06-18 16:52] LABS: Troponin(5th) Baseline 16 ng/L (0-15)
[2023-06-18 16:54] LABS: Alanine Aminotransferase 33 U/L (0-41); Albumin Level 4.7 g/dL (3.5-5.2); Alkaline Phosphatase 125 U/L (40-130); Anion Gap 15.9 (5-19); Aspartate Amino Transferase 20 U/L (0-40); Blood Urea Nitrogen 15 mg/dL (8-23); Carbon Dioxide 26 mmol/L (22-29); Chloride 105 mmol/L (98-107); Glucose 224 mg/dL (65-115); Osmolality Calculated 304 mOsm/kg (285-295); Potassium 3.9 mmol/L (3.5-5.1); Sodium 143 mmol/L (136-145); Total Bilirubin 0.6 mg/dL (0.15-1.2); Total Protein 7.7 g/dL (6.6-8.7)
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
--- NOTE | 2023-06-18 17:11 | ECG_ITS ---
[facility] Test Date: 2023-06-18 Pat Name: Rajeev Carter Department: Room: Gender: Male Case Briefer: : 1950 Requested By: Gregory Lucas Order Number: [id number] Jax MD: Madeline Viramontes M.D. Measurements Intervals [place] Rate: 95 P: 56 WV: 212 QRS: -45 QRSD: 98 T: 42 QT: 368 QTc: 463 Interpretive Statements SINUS RHYTHM WITH FIRST DEGREE AV BLOCK LEFT ANTERIOR FASCICULAR BLOCK [QRS AXIS <= -45, QR IN I, RS IN II] Compared to ECG 06/18/2023 15:55:24 First degree AV block now present Atrial flutter no longer present Electronically Signed On 06-19-2023 11:01:49 CDT by Madeline Viramontes M.D. [id number]
--- NOTE | 2023-06-18 17:13 | PC.NURSE ---
PT HOOKED UP TO CONTINUOUS BEDSIDE CARDIAC MONITORING.
[2023-06-18] MEDS: labetalol 5 mg/mL SDV 20mL 10 MG IVP (17:54)
[2023-06-18 18:00] LABS: Add Urine Microscopic? YES; Bilirubin Urine Neg (Negative); Blood Urine Trace (Negative); Glucose Urine UA 4+ (Normal); Ketones Urine Negative (Negative); Leukocyte Esterase Urine Negative (Negative); Nitrate Urine Negative (Negative); Protein Urine Trace (Negative); Urine Appearance Clear (CLEAR); Urine Color Yellow (Yellow); Urobilinogen Urine Norm (Negative); pH Urine 5 (5-7)
[2023-06-18 18:03] LABS: Add Urine Culture? No; RBC Urine 0-4 /hpf (0-2); WBC Urine 0-4 /hpf (0-5)
[2023-06-18 18:39] LABS: Troponin 5 2HR 14.16 ng/L (0-15); Troponin 5 2HR Delta -1.84 ABS# (0-10)
== END 2023-06-18 19:06 | disposition home or self-care (01) ==
PROVIDERS: Family Medicine; Emergency Provider Emergency Medicine; PCP Emergency Medicine Emergency Medical Services
DX: R07.9 Chest pain, unspecified (principal); Z79.84 Long term (current) use of oral hypoglycemic drugs; Z87.891 Personal history of nicotine dependence; I12.9 Hypertensive chronic kidney disease with stage 1 through stage 4 chronic kidney disease, or unspecified chronic kidney disease; N18.2 Chronic kidney disease, stage 2 (mild); E78.5 Hyperlipidemia, unspecified
CPT/HCPCS: 36415; 71045; 80053; 81001; 84484; 85025; 93005; 96374; 99285; J3490

== ENCOUNTER 2023-06-18 19:58 | Inpatient (IN) | payer OTHER, SELFPAY ==
[2023-06-18] VITALS (11 sets, daily range): BP systolic 146–191; BP diastolic 83–121; PULSE 80–96; RESP 16–32; TEMP 36.4–37.2; O2SAT 93–98; BMI 36.9
--- NOTE | 2023-06-18 19:59 | ECG_ITS ---
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 Measurements Intervals [place] Rate: 100 P: 55 SD: 197 QRS: -37 QRSD: 106 T: 39 QT: 350 QTc: 451 Interpretive Statements SINUS TACHYCARDIA POSSIBLE LEFT ATRIAL ENLARGEMENT [-0.1mV P-WAVE IN V1/V2] LEFT AXIS DEVIATION [QRS AXIS < -30] Compared to ECG 06/18/2023 17:11:45 Left-axis deviation now present Sinus rhythm no longer present First degree AV block no longer present Left anterior fascicular block no longer present Electronically Signed On 06-19-2023 11:00:05 CDT by Madeline Viramontes M.D. [id number]
[2023-06-18 20:18] LABS: Basophils # 0.1 10^3/uL (0.0-0.1); Basophils % 0.6 %; Eosinophils # 0.4 10^3/uL (0.0-0.8); Hematocrit 49.8 % (37-53); Lymphocytes % 29.4 %; Mean Corpuscular HGB Conc 34.5 g/dL (30-55); Mean Corpuscular Hemoglobin 29.6 pg (27-33); Mean Corpuscular Volume 85.6 fl (82-101); Mean Platelet Volume 9.6 fL (7.4-10.4); Monocytes # 0.9 10^3/uL (0.2-0.9); Monocytes % 8.8 %; Neutrophils % 57.1 %; Nucleated Red Blood Cells % 0 %; Platelet Count 260 10^3/cmm (157-399); Red Blood Count 5.82 10^6/uL (3.85-5.65); Red Cell Distribution Width 13.1 % (12.1-15.1); White Blood Count 10.17 10^3/uL (3.29-11.43)
--- NOTE | 2023-06-18 20:27 | CTR_ITS ---
PROCEDURE INFORMATION: Exam: CT Head Without Contrast Exam date and time: 06/18/2023 8:37 PM Age: 72 years old Clinical indication: Weakness; Additional info: Left sided weakness TECHNIQUE: Imaging protocol: Computed tomography of the head without contrast. REPORTING DATA: Count of CT and Cardiac NM exams in prior 12 months: This patient has received 0 known CTs and 0 known cardiac nuclear medicine studies in the 12 months prior to the current study. COMPARISON: No relevant prior studies available. FINDINGS: Brain: No focal hemorrhage or midline shift is identified. The ventricles and parenchyma show mild atrophy and chronic bicerebral white matter ischemic change. Cerebral ventricles: No ventriculomegaly or evidence of hydrocephalus. Paranasal sinuses: No evidence of acute sinusitis. Mild diffuse mucosal thickening. Mastoid air cells: Visualized mastoid air cells are well aerated. Bones/joints: No displaced skull fracture is noted. Soft tissues: Unremarkable. Vasculature: Diffuse vascular calcifications are present. PROCEDURE INFORMATION: Exam: CTA Head With Contrast, Arteriography Exam date and time: 06/18/2023 8:37 PM Age: 72 years old Clinical indication: Weakness; Additional info: Left sided weakness TECHNIQUE: Imaging protocol: Computed tomographic angiography of the head with contrast. Exam focused on the arteries. 3D rendering (Not supervised by radiologist): MIP and/or 3D reconstructed images were created by the technologist. Radiation optimization: All CT scans at this facility use at least one of these dose optimization techniques: automated exposure control; mA and/or kV adjustment per patient size (includes targeted exams where dose is matched to clinical indication); or iterative reconstruction. Contrast material: OMNI 350; Contrast volume: 80 ml; Contrast route: INTRAVENOUS (IV); REPORTING DATA: Count of CT and Cardiac NM exams in prior 12 months: This patient has received 0 known CTs and 0 known cardiac nuclear medicine studies in the 12 months prior to the current study. COMPARISON: No relevant prior studies available. RADIATION DOSE METRICS: Total DLP (mGy-cm): 1195.37 FINDINGS: ANTERIOR CIRCULATION: Right internal carotid artery: Intracranial segment is patent with no significant stenosis. No aneurysm. Right middle cerebral artery: No occlusion or significant stenosis. No aneurysm. Right anterior cerebral artery: No occlusion or significant stenosis. No aneurysm. Left internal carotid artery: Intracranial segment is patent with no significant stenosis. No aneurysm. Left middle cerebral artery: No occlusion or significant stenosis. No aneurysm. Left anterior cerebral artery: No occlusion or significant stenosis. No aneurysm. POSTERIOR CIRCULATION: Right vertebral artery: No occlusion or significant stenosis. No aneurysm. Left vertebral artery: No occlusion or significant stenosis. No aneurysm. Basilar artery: No occlusion or significant stenosis. No aneurysm. Widely patent. Right posterior cerebral artery: The distal right vertebral artery is very tiny along its course. Its distal portion shows no flow in multiple areas. This may be acute or chronic. An MRI may be considered. Left posterior cerebral artery: No occlusion or significant stenosis. No aneurysm. Brain: No focal hemorrhage or midline shift identified. Cerebral ventricles: No evidence of ventriculomegaly or hydrocephalus. The ventricles seem age-appropriate. Bones/joints: Unremarkable. No acute fracture. Soft tissues: Unremarkable. PROCEDURE INFORMATION: Exam: CTA Neck With Contrast Exam date and time: 06/18/2023 8:37 PM Age: 72 years old Clinical indication: Weakness; Additional info: Left sided weakness TECHNIQUE: Imaging protocol: Computed tomographic angiography of the neck with contrast. 3D rendering (Not supervised by radiologist): MIP and/or 3D reconstructed images were created by the technologist. Radiation optimization: All CT scans at this facility use at least one of these dose optimization techniques: automated exposure control; mA and/or kV adjustment per patient size (includes targeted exams where dose is matched to clinical indication); or iterative reconstruction. Contrast material: OMNI 350; Contrast volume: 80 ml; Contrast route: INTRAVENOUS (IV); REPORTING DATA: Count of CT and Cardiac NM exams in prior 12 months: This patient has received 0 known CTs and 0 known cardiac nuclear medicine studies in the 12 months prior to the current study. COMPARISON: CR XR chest 1V portable [id number] 06/18/2023 4:14 PM RADIATION DOSE METRICS: Total DLP (mGy-cm): 1195.37 FINDINGS: Right common carotid artery: No stenosis. No dissection or occlusion. Right internal carotid artery: No stenosis of the extracranial segment. No dissection or occlusion. Right external carotid artery: No occlusion or high-grade stenosis identififed. Left common carotid artery: No stenosis. No dissection or occlusion. Left internal carotid artery: No stenosis of the extracranial segment. No dissection or occlusion. Left external carotid artery: No occlusion or high-grade stenosis identififed. Right vertebral artery: Diffusely hypoplastic. The right vertebral artery is very tiny along its course. Its distal portion shows no flow in multiple areas. This may be acute or chronic. An MRI may be considered. Left vertebral artery: No stenosis. No dissection or occlusion. Soft tissues: No significant soft tissue swelling or other acute finding noted. Bones/joints: No acute fracture. CT/CT angio headneck* [id number] IMPRESSION: 1. No acute intracranial abnormality. 2. Mild age-related changes. 3. Mild sinus disease. IMPRESSION: 1. No anterior circulation large vessel stenosis or occlusion. 2. The right vertebral artery is very tiny along its cervical course. Its distal portion shows no flow in multiple areas. This may be acute or chronic. An MRI may be considered. There are no priors in PACS. IMPRESSION: 1. No carotid stenosis or occlusion. 2. The right vertebral artery is very tiny along its course. Its distal portion shows no flow in multiple areas. This may be acute or chronic. An MRI may be considered. REFERENCES: NASCET CRITERIA. The degree of stenosis in the cervical segment of the internal carotid artery is based on NASCET criteria. Normal is no stenosis. Mild is less than 50% stenosis. Moderate is 50-69% stenosis. Severe is 70% to 99% stenosis. Total occlusion is no detectable patent lumen.
--- NOTE | 2023-06-18 20:27 | CTR_ITS ---
PROCEDURE INFORMATION: Exam: CTA Chest Without And With Contrast CTA Abdomen and Pelvis With Contrast Exam date and time: 06/18/2023 8:47 PM Age: 72 years old Clinical indication: Other: Chest and back pain; Additional info: Concern for dissection TECHNIQUE: Imaging protocol: Computed tomographic angiography of the chest without and with contrast. Exam focused on the arteries. Computed tomographic angiography of the abdomen and pelvis with contrast. Exam focused on the arteries. 3D rendering (Not supervised by radiologist): MIP and/or 3D reconstructed images were created by the technologist. Radiation optimization: All CT scans at this facility use at least one of these dose optimization techniques: automated exposure control; mA and/or kV adjustment per patient size (includes targeted exams where dose is matched to clinical indication); or iterative reconstruction. Contrast material: OMNI 350; Contrast volume: 150 ml; Contrast route: INTRAVENOUS (IV); REPORTING DATA: Count of CT and Cardiac NM exams in prior 12 months: This patient has received 0 known CTs and 0 known cardiac nuclear medicine studies in the 12 months prior to the current study. COMPARISON: CR XR chest 1V portable [id number] 06/18/2023 4:14 PM RADIATION DOSE METRICS: Total DLP (mGy-cm): 1772 FINDINGS: Limitations: Study somewhat limited due to streak artifact created by the patient being scanned with the arms at the sides. VASCULATURE: Pulmonary arteries: There is no evidence of filling defects within the pulmonary arterial circulation to suggest pulmonary embolism. Aorta: There is ectasia of the ascending thoracic aorta with maximum diameter of 4.2 cm. There is some atherosclerotic calcification of the aortic arch. There is no thoracic aortic aneurysm or dissection. The aorta demonstrates moderate atherosclerotic calcification. There is no evidence of an abdominal aortic aneurysm. There is no abdominal aortic dissection. Celiac trunk and mesenteric arteries: There is a small focal aneurysm in the mid left splenic artery with diameter of 13 mm without complication. Renal arteries: There is a single renal artery on each side without stenosis. Right iliac arteries: No occlusion or significant stenosis. Left iliac arteries: No occlusion or significant stenosis. CHEST: Lungs: Lungs are clear. Pleural spaces: Unremarkable. No pneumothorax. No pleural effusion. Heart: Unremarkable. No cardiomegaly. No pericardial effusion. Coronary arteries: There is moderate atherosclerotic calcification of the coronary arteries. Mediastinal space: There is no evidence of mediastinal fluid, masses, or gas. ABDOMEN AND PELVIS: Liver: There is no focal abnormality within the liver. Gallbladder and bile ducts: There has been a cholecystectomy. There is no common bile duct dilation. Pancreas: The pancreas is normal. Spleen: The spleen is normal. Adrenal glands: The adrenal glands are normal. Kidneys and ureters: There are small benign cortical cysts of both kidneys. 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 There is no evidence of hydronephrosis. Stomach and bowel: Moderate diverticulosis is present in the distal colon. There is no evidence of colitis/diverticulitis. There is no evidence of intestinal obstruction. Appendix: A normal appendix is identified. Intraperitoneal space: There is no evidence of free intraperitoneal fluid. Urinary bladder: Unremarkable. No mass. Reproductive: Unremarkable as visualized. Lymph nodes: There are calcified hilar and mediastinal lymph nodes in keeping with old granulomatous disease. There is no evidence of lymphadenopathy. Bones/joints: The thoracic spine demonstrates moderate degenerative changes at multiple levels. The lumbar spine demonstrates moderate degenerative changes at multiple levels. There are findings of L5 laminectomy. Soft tissues: Unremarkable. CT/CT [facility] [id number] IMPRESSION: 1. For aortic dissection. 2. Ectasia of the ascending thoracic aorta 3. 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 Other chronic findings as described above. COMMENTS: Consistent with the [employer]'s Incidental Findings Committee white paper (J Am Rios Radiol 2018): Any incidental renal lesion less than 1 cm or classified as too small to characterize, or any incidental cystic renal lesion characterized as simple-appearing, is likely benign. No follow-up imaging is recommended for these lesions per consensus recommendations based on imaging criteria.
[2023-06-18 20:28] LABS: Glucose Point of Care 189 mg/dL (70-110)
[2023-06-18 20:37] LABS: INR 1.01 (0.8-1.2)
[2023-06-18 20:40] LABS: D Dimer 0.58 ug/mLFEU (0-0.59)
[2023-06-18 20:43] LABS: Troponin(5th) Baseline 16 ng/L (0-15)
[2023-06-18 20:49] LABS: Alanine Aminotransferase 28 U/L (0-41); Albumin Level 4.6 g/dL (3.5-5.2); Alkaline Phosphatase 118 U/L (40-130); Anion Gap 16.7 (5-19); Aspartate Amino Transferase 19 U/L (0-40); Blood Urea Nitrogen 15 mg/dL (8-23); Calcium 9.5 mg/dL (8.5-10.5); Carbon Dioxide 23 mmol/L (22-29); Chloride 105 mmol/L (98-107); Creatinine Clr Calc Pharmacy 91.8853; Globulin 2.5 g/dL (1.3-4.6); Glucose 189 mg/dL (65-115); Osmolality Calculated 298 mOsm/kg (285-295); Potassium 3.7 mmol/L (3.5-5.1); Sodium 141 mmol/L (136-145); Total Bilirubin 0.5 mg/dL (0.15-1.2); Total Protein 7.1 g/dL (6.6-8.7)
[2023-06-18 20:51] LABS: Partial Thromboplastin Time 29.2 SECONDS (23.9-36.7)
[2023-06-18] MEDS: iohexol 350 mg/mL 500 mL Btl (per mL) IV ×2 (21:20→21:22)
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
--- NOTE | 2023-06-18 22:15 | ECG_ITS ---
[facility] Test Date: 2023-06-18 Pat Name: Rajeev Carter Department: Room: ICU10 Gender: Male Night Time Nanny: : 1950 Requested By: Mandy Doe Order Number: [id number] Jax MD: Madeline Viramontes M.D. Measurements Intervals [place] Rate: 90 P: 46 LA: 212 QRS: -46 QRSD: 91 T: 15 QT: 375 QTc: 460 Interpretive Statements SINUS RHYTHM WITH FIRST DEGREE AV BLOCK LEFT ANTERIOR FASCICULAR BLOCK [QRS AXIS <= -45, QR IN I, RS IN II] INFERIOR MYOCARDIAL INFARCTION , PROBABLY OLD [40+ ms Q WAVE AND/OR ST/T ABNORMALITY IN II/aVF] Compared to ECG 06/18/2023 20:00:19 First degree AV block now present Left anterior fascicular block now present Myocardial infarct finding now present Sinus tachycardia no longer present Left-axis deviation no longer present Electronically Signed On 06-19-2023 11:01:38 CDT by Madeline Viramontes M.D. [email or web address]
[2023-06-18 22:33] LABS: Troponin 5 2HR 16.23 ng/L (0-15); Troponin 5 2HR Delta 0.23 ABS# (0-10)
--- NOTE | 2023-06-18 22:44 | PC.NURSE ---
Reported patient's arrival to ICU and elevated blood pressure to Dr. Guevara.
--- NOTE | 2023-06-18 23:25 | USCV_ITS ---
Rajeev Carter Age: 72 Gender: M : 1950 Exam Date: 06/18/2023 23:47 Ordering Phys: Kushal Guevara MD Technologist: TANISHA Exam Location: [facility] [place] Indication: LEFT hemiparesis CVA. No history of cardiac intervention per patient. BP: 146 / 94 HR: 77 Rhythm: Sinus Technical Quality: Fair with [employer] MEASUREMENTS (Male / Female) Normal Values 2D ECHO LV Diastolic Diameter PLAX 4.1 cm 4.2 - 5.9 / 3.9 - 5.3 cm LV Systolic Diameter PLAX 2.5 cm IVS Diastolic Thickness 2.4 cm 0.6 - 1.0 / 0.6 - 0.9 cm IVS Systolic Thickness 2.6 cm LVPW Diastolic Thickness 1.7 cm 0.6 - 1.0 / 0.6 - 0.9 cm LVPW Systolic Thickness 1.9 cm LVOT Diameter 2.3 cm LV Ejection Fraction 2D Teich 68.7 % LV Ejection Fraction MOD 2C 75.4 % LV Ejection Fraction 2C AL 75.7 % LA Diameter 5.1 cm LA Width 4.2 cm LA Height 5.4 cm RA Width 3.3 cm RA Height 4.1 cm Aorta at Sinotubular Diameter 2.9 cm IVC Diameter 1.9 cm M-MODE Aortic Annulus Diameter 3.5 cm LA Ao Ratio MM 1.6 MV E Point Septal Separation 0.4 cm DOPPLER AV Peak Velocity 124.0 cm/s LVOT Peak Velocity 96.0 cm/s AV Area Cont Eq vti 3.1 cm squared AV Area Cont Eq pk 3.2 cm squared MV Peak Velocity 118.0 cm/s MV Area PHT 3.5 cm squared Mitral E to A Ratio 0.5 MV E' Velocity 27.5 cm/s Mitral E to MV E' Ratio 9.1 Mitral E to LV E' Lateral Ratio 7.1 Mitral E to LV E' Septal Ratio 13.0 TV Peak E Velocity 25.0 cm/s PV Peak Velocity 95.0 cm/s RV Acceleration Time 0.1 s RV Ejection Time 0.3 s RV AcT/ET 0.4 FINDINGS Left Ventricle Normal left ventricular size, systolic function and wall thickness, with no regional wall motion abnormalities. Left ventricular ejection fraction is estimated at 60-65 %. Grade I diastolic dysfunction (abnormal relaxation filling pattern), normal to mildly elevated filling pressures. Right Ventricle Normal right ventricular size and systolic function. RVSP could not be calculated due to incomplete tricuspid regurgitation velocity profile. Right Atrium Normal right atrial size. Left Atrium Normal left atrial size. Mitral Valve Mild mitral annular calcification. Structurally normal mitral valve. No mitral valve stenosis. Trace mitral valve regurgitation. Aortic Valve Aortic valve not well visualized. No aortic valve stenosis. No aortic valve regurgitation. Tricuspid Valve Structurally normal tricuspid valve. Pulmonic Valve Pulmonic valve not well visualized. No pulmonary valve stenosis. Pericardium No pericardial effusion. Aorta Normal size aortic root and proximal ascending aorta. IVC Normal IVC dimension with >50% respiratory change of the inferior vena cava. CONCLUSIONS 1. Normal left ventricular size, systolic function and wall thickness, with no regional wall motion abnormalities. Left ventricular ejection fraction is estimated at 60-65 %. Grade I diastolic dysfunction (abnormal relaxation filling pattern), normal to mildly elevated filling pressures. 2. No significant valvular abnormality. 3. No prior similar studies to compare. Madeline Viramontes MD (Electronically Signed) Final Date: 19 June 2023 09:52 S
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
[2023-06-18] MEDS: pantoprazole 40 mg SDV IVP (23:40)
[2023-06-18] MEDS: sodium chloride 0.9% 1,000 ML 100 ML IV (23:40)
[2023-06-19] VITALS (66 sets, daily range): BP systolic 112–201; BP diastolic 73–133; PULSE 64–98; RESP 16–33; TEMP 36.6–37.1; O2SAT 90–97
[2023-06-19] LABS: Chol HDL Ratio 3.63 mg/dL (1.0-5.00); Cholesterol 149 mg/dL (0-200); HDL Cholesterol 41 mg/dL (60-100); LDL Cholesterol Calculated 82 mg/dL (50-129); Thyroid Stimulating Hormone 1.04 uIU/mL (0.27-4.20); Triglycerides 130 mg/dL (0-150)
[2023-06-19 00:21] LABS: Estmated Average Glucose 140; Hemoglobin A1C 6.5 % (4.0-6.0)
[2023-06-19] MEDS: labetalol 5 mg/mL SDV 20mL 10 MG IVP (01:53)
--- NOTE | 2023-06-19 02:08 | PC.NURSE ---
06/18/230 - Dr. Guevara at bedside. Discussed need for Brennan. Patient refusing at this time, states he was able to void in a urinal in ER. Ok with Dr. Guevara to hold off on Brennan for now.
[2023-06-19 02:23] LABS: Basophils # 0.1 10^3/uL (0.0-0.1); Basophils % 0.5 %; Eosinophils # 0.4 10^3/uL (0.0-0.8); Eosinophils % 3.9 %; Hematocrit 46.9 % (37-53); Lymphocytes # 2.9 10^3/uL (0.8-4.8); Lymphocytes % 30.4 %; Mean Corpuscular HGB Conc 33.7 g/dL (30-55); Mean Corpuscular Hemoglobin 29.2 pg (27-33); Mean Corpuscular Volume 86.7 fl (82-101); Mean Platelet Volume 9.6 fL (7.4-10.4); Monocytes # 0.8 10^3/uL (0.2-0.9); Monocytes % 8.8 %; Neutrophils # 5.27 10^3/uL (1.8-7.7); Neutrophils % 56.3 %; Nucleated Red Blood Cells % 0 %; Platelet Count 221 10^3/cmm (157-399); Red Blood Count 5.41 10^6/uL (3.85-5.65); Red Cell Distribution Width 13.2 % (12.1-15.1); White Blood Count 9.38 10^3/uL (3.29-11.43)
[2023-06-19 02:37] LABS: INR 1.08 (0.8-1.2)
[2023-06-19 02:38] LABS: Fibrinogen 317 mg/dL (174-498)
[2023-06-19 02:41] LABS: Troponin 5 6HR 16.79 ng/L (0-15)
[2023-06-19 02:45] LABS: Alanine Aminotransferase 23 U/L (0-41); Albumin Level 3.9 g/dL (3.5-5.2); Alkaline Phosphatase 104 U/L (40-130); Anion Gap 14.6 (5-19); Aspartate Amino Transferase 16 U/L (0-40); Blood Urea Nitrogen 13 mg/dL (8-23); Calcium 9.1 mg/dL (8.5-10.5); Carbon Dioxide 24 mmol/L (22-29); Chloride 103 mmol/L (98-107); Globulin 2.9 g/dL (1.3-4.6); Glucose 145 mg/dL (65-115); Magnesium 2.1 mg/dL (1.7-2.3); Osmolality Calculated 289 mOsm/kg (285-295); Phosphorus 3.2 mg/dL (2.5-4.5); Potassium 3.6 mmol/L (3.5-5.1); Sodium 138 mmol/L (136-145); Total Bilirubin 0.6 mg/dL (0.15-1.2); Total Protein 6.8 g/dL (6.6-8.7)
--- NOTE | 2023-06-19 02:49 | ECG_ITS ---
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 Measurements Intervals [place] Rate: 81 P: 32 VA: 211 QRS: -38 QRSD: 114 T: 30 QT: 402 QTc: 469 Interpretive Statements SINUS RHYTHM WITH FIRST DEGREE AV BLOCK LEFT AXIS DEVIATION [QRS AXIS < -30] ANTEROSEPTAL MYOCARDIAL INFARCTION , OF INDETERMINATE AGE [40+ ms Q WAVE IN V1-V4] Compared to ECG 06/18/2023 22:15:54 Left-axis deviation now present Left anterior fascicular block no longer present Myocardial infarct finding still present Electronically Signed On 06-19-2023 11:01:11 CDT by Madeline Viramontes M.D. [email or web address]
[2023-06-19 02:51] LABS: Troponin 5 6HR Delta 0.79 ng/L (0-12)
[2023-06-19] MEDS: perflutren protein-a microsphr 0.22 mg/mL SDV 3 mL IV (05:46)
[2023-06-19 06:26] LABS: Add Urine Culture? No; Add Urine Microscopic? YES; Bacteria Urine TRACE /hpf; Bilirubin Urine Neg (Negative); Blood Urine 2+ (Negative); Glucose Urine UA 4+ (Normal); Ketones Urine Negative (Negative); Leukocyte Esterase Urine Trace (Negative); Nitrate Urine Negative (Negative); Protein Urine 1+ (Negative); RBC Urine 0-4 /hpf (0-2); Specific Gravity, Urine 1.015 (1.005-1.030); Squamous Epithelial Cell Urine 0-4 /hpf (0-5); Urine Appearance Clear (CLEAR); Urine Color Yellow (Yellow); Urobilinogen Urine 1 mg/dL (Negative); WBC Urine 0-4 /hpf (0-5); pH Urine 5 (5-7)
[2023-06-19 08:32] LABS: Glucose Point of Care 149 mg/dL (70-110)
[2023-06-19] MEDS: insulin lispro 100 unit/1 mL SUBCUT (09:28)
[2023-06-19 11:38] LABS: Glucose Point of Care 124 mg/dL (70-110)
[2023-06-19] MEDS: sodium chloride 0.9% 1,000 ML 100 ML IV ×2 (13:13→20:40)
--- NOTE | 2023-06-19 13:31 | P.PNCC_ITS ---
Stroke Alert Activation ED Arrival Date: 06/18/23 ED Arrival Time: 20:05 Last Known Normal/at Baseline: < 1 hour ago Other Last Known Well Infomation: This patient spent the afternoon in the emergency department when he presented at around 4:00 with chest pain and was seen by Dr. Kwan. He was complaining of pain in his back radiating to the middle of his chest and was worked up for an [place]. He was signed off to Dr. Doe but he was thought to have atypical chest pain and he was discharged from the ER. He went home and took a shower and while he was in the shower he developed left-sided weakness. Because of the chest pain, Dr. Garcia was concerned for aortic dissection and on the patient's arrival he ordered CT angiogram of the chest and called me while the patient was having CT of the head and CT angiogram. He thought the patient's stroke scale score was about a 2 based upon drift on the left side, arm and leg, but agreed to face time with me when the patient's studies were completed. That was done and I examined the patient and found that he could not stand up and he had significant weakness on the left side. He was not dysarthric. He had definite known time of onset after he got home from the hospital and was in the shower, less than an hour prior to arrival. I communicated with the nurse and with Dr. Garcia and I recommended stat treatment with tPA. I went over the risks and benefits with the patient and his and he agreed to treatment. I called back 10 minutes later to make sure that he had received the bolus and the nurse had completed the bolus and initiated tPA. Stroke Alert Activated by: Dr. Garcia Stroke Alert Activation Time: 20:30 Stroke MD @ Bedside Time: 20:30 NIH Stroke Scale Time: 21:44 NIH stroke score NIHSS: Level Of Consciousness - 1a: 0 Level Of Consciousness Questions - 1b: Both Correct Level Of Consciousness Commands - 1c: Both Correct Best Gaze - 2: Normal Visual Nunes - 3: No Visual Loss Facial Palsy - 4: Normal Motor Arm Right - 5: No Drift Motor Arm Left - 5: Effort Against [place] Motor Leg Right - 6: No Drift Motor Leg Left - 6: Effort Against [place] Limb Ataxia - 7: Absent Sensory - 8: Normal Best Language - 9: No Aphasia Dysarthia - 10: Normal Extinction And Inattention - 11: 0 Score: Total Score: 4 Stroke Alert Data/Treatment Time to CT of Head: 20:47 CT Impression: 1. ? No acute intracranial abnormality. 2. ? Mild age-related changes. 3. ? Mild sinus disease. tPA Started Time: tPA Started - Time: 21:44 tPA Admin Prior to Arrival: No Other Patient & Family Education: I reviewed the risk and benefits of tPA Other Information: I cannot figure out when the bolus was given. This was confusing because the patient did not have activation of the stroke for 30 minutes after arrival and I am not sure why there was a delay. Dr. Garcia did not think that the patient needed tPA but he could not walk and by the time I examined him he was significantly weak on the left side and his stroke scale score was high enough to justify tPA. Dr. Garcia appropriately obtained CT angiogram of the chest stat to make sure that the patient did not have aortic dissection which would be a strong contraindication for thrombolytic therapy. The times on his CAT scan would indicate that he did not go to CAT scan until quite late. Stroke alert was called to me at 8[address] and I spoke with Dr[address] Garcia at that time and said I would examine the patient as soon as he returned from CAT scan and I was called to allow me to do that. It looks to me like he did not get a bolus of tPA until almost 10 PM and I am not sure why there was so much delay Critical Care Time Critical Care Time: 30 - 74 mins A&P Assessment and plan (1) Received intravenous tissue plasminogen activator (tPA) within last 24 hours: (2) Acute CVA (cerebrovascular accident): Acute stroke with left-sided weakness and inability to walk. This occurred in the context of chest pain and needed to rule out aortic dissection. This was a difficult task but patient did receive a bolus about 2 hours from onset of symptoms from what I can tell. Coding Level of Care Code Acute Code for Chg Fwd Diagnoses Received intravenous tissue plasminogen activator (tPA) within last 24 hours Acute CVA (cerebrovascular accident) I63.9
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
[2023-06-19 17:18] LABS: Glucose Point of Care 125 mg/dL (70-110)
--- NOTE | 2023-06-19 19:25 | PC.NURSE ---
Shift summary: Pt alert and oriented. NIH 1-2, Slight ataxia and parasthesia with left arm. No issues today. VSS. Pt able to use BSC without difficulty. BM noted today. He does have gait abnormality but it appears to be a chronic issue not CVA related. Friend and stepson visited today, very attentive to patient.
[2023-06-19] MEDS: atorvastatin 40 mg Tablet PO (22:03)
[2023-06-19] MEDS: pantoprazole 40 mg SDV IVP (22:04)
--- NOTE | 2023-06-19 23:00 | CTR_ITS ---
PROCEDURE INFORMATION: Exam: CT Head Without Contrast Exam date and time: 06/19/2023 10:54 PM Age: 72 years old Clinical indication: Other: 24hr S/P tpa TECHNIQUE: Imaging protocol: Computed tomography of the head without contrast. Radiation optimization: All CT scans at this facility use at least one of these dose optimization techniques: automated exposure control; mA and/or kV adjustment per patient size (includes targeted exams where dose is matched to clinical indication); or iterative reconstruction. REPORTING DATA: Count of CT and Cardiac NM exams in prior 12 months: This patient has received 2 known CTs and 0 known cardiac nuclear medicine studies in the 12 months prior to the current study. COMPARISON: CT angio headneck* [id number] 06/18/2023 8:37 PM RADIATION DOSE METRICS: Total DLP (mGy-cm): 1131.84 FINDINGS: Brain: There is moderate cortical atrophy. Low-density changes in the white matter are consistent with nonspecific small vessel chronic ischemic change. There is no intracranial mass, hemorrhage or edema. Cerebral ventricles: No ventriculomegaly. Paranasal sinuses: Visualized sinuses are unremarkable. No fluid levels. Mastoid air cells: Visualized mastoid air cells are well aerated. Bones/joints: Unremarkable. No acute fracture. Soft tissues: Unremarkable. CT/CT head wo con* [id number] IMPRESSION: No acute intracranial finding. No evidence of hemorrhage.
[2023-06-20] VITALS (27 sets, daily range): BP systolic 120–166; BP diastolic 68–105; PULSE 62–89; RESP 15–36; TEMP 36.4–36.9; O2SAT 92–99
[2023-06-20 05:01] LABS: Basophils % 0.4 %; Eosinophils # 0.4 10^3/uL (0.0-0.8); Eosinophils % 5.8 %; Hematocrit 45.4 % (37-53); Lymphocytes % 29.5 %; Mean Corpuscular HGB Conc 32.6 g/dL (30-55); Mean Corpuscular Hemoglobin 29.1 pg (27-33); Mean Corpuscular Volume 89.4 fl (82-101); Mean Platelet Volume 9.6 fL (7.4-10.4); Monocytes # 0.7 10^3/uL (0.2-0.9); Monocytes % 9.7 %; Neutrophils # 3.69 10^3/uL (1.8-7.7); Neutrophils % 54.5 %; Nucleated Red Blood Cells % 0 %; Platelet Count 193 10^3/cmm (157-399); Red Blood Count 5.08 10^6/uL (3.85-5.65); Red Cell Distribution Width 13.4 % (12.1-15.1); White Blood Count 6.78 10^3/uL (3.29-11.43)
[2023-06-20 07:58] LABS: Glucose Point of Care 136 mg/dL (70-110)
[2023-06-20] MEDS: amlodipine 5 mg Tablet PO (09:34)
[2023-06-20] MEDS: aspirin 81 mg EC Tablet PO (09:34)
[2023-06-20] MEDS: labetalol 5 mg/mL SDV 20mL IVP (09:35)
--- NOTE | 2023-06-20 10:08 | P.PN_ITS ---
Subjective Subjective: Reports he is doing well, denies any symptoms. Strength further improved left arm. Sensation still decreased, arm feels like it has fallen asleep . Vitals/I&O/Wt Last Vital Signs Temp 97.8 F 06/20/23 03:23 Pulse 62 06/20/23 05:42 Resp 28 H 06/20/23 02:00 BP 143/82 06/20/23 02:00 Pulse Ox 96 06/20/23 02:00 O2 Del Method Room Air 06/20/23 03:23 06/19/23 06/20/23 06/20/23 22:59 06:59 14:59 Intake Total 1595 / 3295 100 / 3395 600 / 600 Balance 1595 / 3295 100 / 3395 600 / 600 Weight last 48 hrs Weight 127.006 kg Weight 127.006 kg Physical Exam Narrative: Sitting up in a chair. Accompanied by family. Pleasant, conversant, in good spirits. Const: COMMON NORMALS: patient oriented x3 and alert GENERAL APPEARANCE: cooperative ORIENTATION/CONSCIOUSNESS: Yes awake HENMT: COMMON NORMALS: oropharynx normal Neck/C-Spine: COMMON NORMALS: no JVD Resp: COMMON NORMALS: normal respiratory effort and clear to auscultation bilaterally AUSCULTATION: clear to auscultation bilaterally Cardio: COMMON NORMALS: no JVD, regular rhythm, S1 normal heart sound present, S2 normal heart sound present and No murmurs present (Cardio) RHYTHM: regular rhythm HEART SOUNDS: S1 normal heart sound present and S2 normal heart sound present GI: COMMON NORMALS: Normal to inspection, nondistended, normoactive bowel sounds present, Soft to palpation and non-tender PALPATION: Yes Soft to palpation Extremity: COMMON NORMALS: no joint enlargement and no pedal edema OTHER: Scars after old injury LLE. Neuro: COMMON NORMALS: patient oriented x3 and moves all extremities SENSORIUM/ORIENTATION: Yes alert OTHER: He is awake and alert, keenly responsive. I do not appreciate any facial droop. No difficulty with horizontal tracking. Visual jane full to confrontation. No visual extinction. There is some moderate sensory asymmetry with moderately diminished sensation on the left compared to the right. Some of this in the lower extremities chronic, without prior history in upper extremity. No left upper extremity drift. He is able to lift left lower extremity off bed with significant effort, though does drop it to the bed. No difficulty with FNF. Skin: COMMON NORMALS: no rashes or lesions noted GENERAL SKIN EXAM: no rashes or lesions noted Data 06/20/23 04:28 06/19/23 02:06 A&P Assessment and plan (1) Acute CVA (cerebrovascular accident): (2) Received intravenous tissue plasminogen activator (tPA) within last 24 hours: (3) Diabetic peripheral neuropathy associated with type 2 diabetes mellitus: (4) Diabetes mellitus type 2 in obese: Plan Acute CVA, right hemispheric: Reviewed CBC. No change in hemoglobin. Reviewed CT head. Discussed with him a nd family. Started on aspirin. Stop IV fluid. PT, OT assessment. Post discharge planning. Reviewed case management note. Discussed consideration of rehabilitation versus home with outpatient therapy depending on how he is doing. Blood pressure bit too high this morning, given a small dose of labetalol 5 mg, as well as started on 5 mg amlodipine daily. Monitor blood pressure. Gradually decrease, target 120/80. Consider quality assurance monitor chassis at discharge. Transfer out of ICU. Status post tPA with some improvement in symptoms including of weakness of LUE. Persistence of Sensory deficit left upper extremity. left lower extremity more difficult to examine due to chronic issues with that leg after past severe injury with residual weakness as well as sensory loss, but appears to still have additional component of weakness an additional sensory loss following CVA. Telemetry monitoring. Continue statin. Follow-up with neurology. Yesterday pain between shoulder blades, chest pressure: noted no dissection. Reviewed echo. Reviewd trop series, mild elevation without peak. echo without RWMA. Noted some ectasia of ascending thoracic aorta. Will need follow-up. 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 This appears to be more musculoskeletal. Possibly some intercostal pain. Discussed Tylenol, lidocaine patch as needed. Monitor for any change in sympt oms. DM2: Oral medications on hold. Mild dose sliding scale. Consistent carb diet. -SCDs for DVT prophylaxis Attestations Medical Necessity Statement*: Continue admission for assessment and monitoring following CVA and treatment with tPA. Post discharge planning. Diagnoses Acute CVA (cerebrovascular accident) I63.9 Received intravenous tissue plasminogen activator (tPA) within last 24 hours Diabetic peripheral neuropathy associated with type 2 diabetes mellitus E11.42 Diabetes mellitus type 2 in obese E11.69; E66.9
--- NOTE | 2023-06-20 11:45 | PC.NURSE ---
Report faxed to [facility].
[2023-06-20 12:07] LABS: Glucose Point of Care 197 mg/dL (70-110)
[2023-06-20] MEDS: insulin lispro 100 unit/1 mL SUBCUT ×2 (12:18→17:30)
[2023-06-20] MEDS: acetaminophen 325 mg Tablet 650 MG PO (12:18)
--- NOTE | 2023-06-20 13:50 | PC.NURSE ---
Verbal report given to Anand LEDESMA. Michael, PT, with patient ambulated up to room. Belongings gathered by family, transferred with patient.
[2023-06-20] MEDS: metoprolol tartrate 25 mg Tablet 12.5 MG PO ×2 (15:27→17:31)
[2023-06-20] MEDS: finasteride 5 mg Tablet PO (15:27)
[2023-06-20 17:02] LABS: Glucose Point of Care 180 mg/dL (70-110)
[2023-06-20] MEDS: tamsulosin 0.4 mg Capsule PO (17:31)
[2023-06-20 20:34] LABS: Glucose Point of Care 145 mg/dL (70-110)
[2023-06-20] MEDS: atorvastatin 40 mg Tablet PO (21:24)
[2023-06-20] MEDS: prazosin 1 mg Capsule PO (21:24)
[2023-06-20] MEDS: pantoprazole 40 mg SDV IVP (22:18)
[2023-06-21] VITALS (12 sets, daily range): BP systolic 117–155; BP diastolic 72–88; PULSE 64–102; RESP 16–18; TEMP 36.3–36.8; O2SAT 93–98
[2023-06-21 07:03] LABS: Glucose Point of Care 165 mg/dL (70-110)
[2023-06-21] MEDS: insulin lispro 100 unit/1 mL SUBCUT ×3 (09:20→18:04)
[2023-06-21] MEDS: finasteride 5 mg Tablet PO (09:21)
[2023-06-21] MEDS: aspirin 81 mg EC Tablet PO (09:21)
[2023-06-21] MEDS: amlodipine 5 mg Tablet PO (10:32)
[2023-06-21 11:37] LABS: Glucose Point of Care 208 mg/dL (70-110)
--- NOTE | 2023-06-21 13:01 | MRR_ITS ---
PROCEDURE INFORMATION: Exam: MR Head Without Contrast Exam date and time: 06/21/2023 1:53 PM Age: 72 years old Clinical indication: Malaise or fatigue; Patient HX: Left arm and leg shaking and spasming; Additional info: CVA, poss seizure TECHNIQUE: Imaging protocol: Magnetic resonance imaging of the head without contrast. COMPARISON: CT head wo con* [id number] 06/19/2023 10:54 PM FINDINGS: Brain: No acute infarct. No hemorrhage. No significant white matter disease. No edema. Mild diffuse cerebral atrophy. Cerebral ventricles: Normal. No ventriculomegaly. Bones/joints: Unremarkable. Paranasal sinuses: Mild mucosal thickening of the ethmoid sinuses and right sphenoid sinus. Mastoid air cells: Normal as visualized. No mastoid effusion. Orbital cavities: Unremarkable. Soft tissues: Unremarkable. MR/MR head wo con* [id number] IMPRESSION: No acute ischemia.
[2023-06-21] MEDS: levETIRAcetam 1,000 mg/10 mL UDC 500 MG PO ×2 (13:16→18:04)
--- NOTE | 2023-06-21 15:38 | PM.PN ---
Subjective Subjective: This morning he is doing well. He did quite well with physical therapy. Improving sensation in left upper extremity. Still diminished. Decreased sensation in left leg. Vitals/I&O/Wt Last Vital Signs Temp 98.2 F 06/21/23 11:34 Pulse 84 06/21/23 11:34 Resp 17 06/21/23 11:34 BP 139/83 06/21/23 11:34 Pulse Ox 93 06/21/23 11:34 O2 Del Method Room Air 06/21/23 07:55 FiO2 21 06/20/23 22:09 06/21/23 06/21/23 06/21/23 06:59 14:59 22:59 Intake Total 600 / 600 Balance 600 / 600 Physical Exam Narrative: Sitting up in bed. Accompanied by family. Pleasant, conversant, in good spirits. Const: COMMON NORMALS: patient oriented x3 and alert GENERAL APPEARANCE: cooperative ORIENTATION/CONSCIOUSNESS: Yes awake HENMT: COMMON NORMALS: oropharynx normal Neck/C-Spine: COMMON NORMALS: no JVD Resp: COMMON NORMALS: normal respiratory effort and clear to auscultation bilaterally AUSCULTATION: clear to auscultation bilaterally Cardio: COMMON NORMALS: no JVD, regular rhythm, S1 normal heart sound present, S2 normal heart sound present and No murmurs present (Cardio) RHYTHM: regular rhythm HEART SOUNDS: S1 normal heart sound present and S2 normal heart sound present GI: COMMON NORMALS: Normal to inspection, nondistended, normoactive bowel sounds present, Soft to palpation and non-tender PALPATION: Yes Soft to palpation Extremity: COMMON NORMALS: no joint enlargement and no pedal edema OTHER: Scars after old injury LLE. Neuro: COMMON NORMALS: patient oriented x3 and moves all extremities SENSORIUM/ORIENTATION: Yes alert OTHER: He is awake and alert, keenly responsive. I do not appreciate any facial droop. No difficulty with horizontal tracking. Visual jane full to confrontation. No visual extinction. There is some moderate sensory asymmetry with moderately diminished sensation on the left compared to the right. Some of this in the lower extremities chronic, without prior history in upper extremity. No left upper extremity drift. He is able to lift left lower extremity off bed with significant effort, though does drop it to the bed. No difficulty with FNF. Skin: COMMON NORMALS: no rashes or lesions noted GENERAL SKIN EXAM: no rashes or lesions noted Data 06/20/23 04:28 06/19/23 02:06 A&P Assessment and plan (1) Acute CVA (cerebrovascular accident): (2) Received intravenous tissue plasminogen activator (tPA) within last 24 hours: (3) Diabetic peripheral neuropathy associated with type 2 diabetes mellitus: (4) Diabetes mellitus type 2 in obese: Plan Acute CVA, right hemispheric: This morning he is doing well. He did better with physical therapy. Noted that he could return home with outpatient physical therapy. Sensation improving but still diminished in left upper and lower extremity. In addition the left lower extremity is shorter and he would benefit from follow-up for shoe inserts or heel lifts which she intends to do with [facility]. Discussed with them fall and injury precautions. Discussed additionally continued optimization of blood pressure control. His blood pressures are in the soft side and so we have not yet resumed his antihypertensives. He is on a low-dose metoprolol, lower dose amlodipine. Discussed gradual escalation of antihypertensives depending on his blood pressures, continue metoprolol, amlodipine, holding if blood pressure soft, increasing amlodipine dose, resuming half dose lisinopril and increasing as demanded by his blood pressure. Encouraged to keep in close contact with me provider office to help guide antihypertensive regimen. He did quite better on review of PT notes, to the point that he could return home with outpatient therapy with PT and OT. Requested. We were preparing for discharge, arrangements made for cardiac nurse specialist at discharge. Requested also follow-up with neurology in office. With continued aspirin, statin at discharge. Continued optimization of cardiovascular risks. However, he had an episode of tensing up of left upper and lower extremities which then began to shake for about 30 seconds. Stop spontaneously. With possible seizure activity started on Keppra. Discussed with pharmacist. Requested MRI brain. Discharge for now deferred. Seizure precautions. We will follow-up chemistry. Status post tPA with some improvement in symptoms including of weakness of LUE. Persistence of Sensory deficit left upper extremity. left lower extremity more difficult to examine due to chronic issues with that leg after past severe injury with residual weakness as well as sensory loss, but appears to still have additional component of weakness an additional sensory loss following CVA. Reports mild subjective neglect of left upper extremity. Tender spot underneath left shoulder blade. Discussed additional options, they prefer for now continue lidocaine patches. Chest pressure resolved. noted no dissection on CTA. Reviewed echo. Reviewd trop series, mild elevation without peak. echo without RWMA. Noted some ectasia of ascending thoracic aorta. Will need follow-up. 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 DM2: Reviewed Accu-Cheks. Oral medications on hold. Mild dose sliding scale. Consistent carb diet. -SCDs for DVT prophylaxis Attestations Medical Necessity Statement*: Continue admission for assessment and monitoring following CVA and treatment with tPA.? Possible seizure. Post discharge planning. Diagnoses Acute CVA (cerebrovascular accident) I63.9 Received intravenous tissue plasminogen activator (tPA) within last 24 hours Diabetic peripheral neuropathy associated with type 2 diabetes mellitus E11.42 Diabetes mellitus type 2 in obese E11.69; E66.9
[2023-06-21 17:09] LABS: Glucose Point of Care 238 mg/dL (70-110)
[2023-06-21] MEDS: tamsulosin 0.4 mg Capsule PO (18:04)
[2023-06-21] MEDS: metoprolol tartrate 25 mg Tablet 12.5 MG PO (18:04)
[2023-06-21 21:25] LABS: Glucose Point of Care 211 mg/dL (70-110)
[2023-06-21] MEDS: prazosin 1 mg Capsule PO (22:19)
[2023-06-21] MEDS: atorvastatin 40 mg Tablet PO (22:19)
[2023-06-21] MEDS: pantoprazole 40 mg SDV IVP (23:20)
[2023-06-22] VITALS (10 sets, daily range): BP systolic 124–175; BP diastolic 64–90; PULSE 79–110; RESP 16–18; TEMP 36.6–36.9; O2SAT 94–97
[2023-06-22 05:18] LABS: Anion Gap 11.8 (5-19); Blood Urea Nitrogen 15 mg/dL (8-23); Carbon Dioxide 27 mmol/L (22-29); Chloride 106 mmol/L (98-107); Glucose 159 mg/dL (65-115); Osmolality Calculated 296 mOsm/kg (285-295); Potassium 3.8 mmol/L (3.5-5.1); Sodium 141 mmol/L (136-145)
[2023-06-22 06:56] LABS: Glucose Point of Care 196 mg/dL (70-110)
[2023-06-22] MEDS: levETIRAcetam 1,000 mg/10 mL UDC 500 MG PO (08:35)
[2023-06-22] MEDS: amlodipine 5 mg Tablet PO (08:36)
[2023-06-22] MEDS: insulin lispro 100 unit/1 mL SUBCUT ×2 (08:36→12:01)
[2023-06-22] MEDS: finasteride 5 mg Tablet PO (08:36)
[2023-06-22] MEDS: aspirin 81 mg EC Tablet PO (08:36)
[2023-06-22] MEDS: metoprolol tartrate 25 mg Tablet 12.5 MG PO (08:36)
[2023-06-22 11:15] LABS: Glucose Point of Care 237 mg/dL (70-110)
--- NOTE | 2023-06-22 12:19 | PC.SOCIAL ---
IMM Update pg 2 of IMM updated and reviewed w/ patient. Copy provided and copy dated, initialed and placed in chart.
--- NOTE | 2023-06-22 13:11 | PM.DCS ---
Discharge Providers Date of Admission: 06/18/23 21:55 Date of Discharge: June 22, 2023 Attending Provider at Admission: Kushal Guevara MD Attending Provider at Discharge: Carla Sawyer MD Primary Care Provider: Toi Smyth DO Diagnoses at Discharge Discharge Diagnosis (1) Acute CVA (cerebrovascular accident): Status: Acute (2) Received intravenous tissue plasminogen activator (tPA) within last 24 hours: Status: Acute (3) Diabetic peripheral neuropathy associated with type 2 diabetes mellitus: Status: Acute (4) Diabetes mellitus type 2 in obese: Status: Acute Reason for Visit Reason for Visit: Chest Pains Arms Numb Hospital Course Hospital Course Rajeev Carter is a 72 year old male with a past medical history of insulin-dependent type 2 diabetes mellitus, history of hypertension, history of BPH, who presented to [facility] due to left-sided weakness on 06/18. he had noticed that his left hand was clumsy, he had trouble coordinating, and he started to notice weakness in his left leg, he was still able to bear weight, but he felt unsteady. he was evaluated by ER physician, given his chest pain complaints, back pain complaints, he had an evaluation of aortic dissection, no significant radiographic evidence of aortic dissection, evaluated by neurology, was deemed a tPA candidate, was given tPA. His left sided weakness improved significantly during hospitalization. He participated with PT and did well- he is independent at time of discharge. He continues to have some inpaored sensation in his left arm wherein he feels he needs more time than usual to get his left arm to follow directions. Echocardiogram shwoed EF 60-65% , gr 1 diastolic function. He has been set up with event monitor. he is continued on ASA and statins. HE was originally planned to be discharged on 06/21 but then was noticed to have seizure like activity affecting the left hand for which he was started on Keppra. Neurology has been updated, recommended outpatient EEG and close outpatient follow up which is being arranged. MRI of the brain was perfromed on 06/21 to evaluate for any bleeding or edema- study returned withotu any acute intracranial events. Chest pressure resolved during admission. he was noted some ectasia of ascending thoracic aorta.? Will need follow-up as outpatient. ? 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 He is being discharged in stable condition. Physical Exam Narrative: General: No acute distress, AO x3 HEENT: PERRLA, pupils bilaterally equal and reactive, pallors not present Chest: Normal vesicular breath sounds, no added sounds, equal good air entry bilaterally CVS: S1-S2 regular, no murmurs, no tachycardia, no gallops, no rubs Abdomen: Soft, nontender, no organomegaly, bowel sounds present Neuro: No focal deficits, no facial deformity, AO x3, power 5/5 in all limbs Discharge Data Studies Completed and Pending Completed Studies During Hospitalization Category Date Time Status CT ang ches abdpel [id number] Stat Cat Scan 06/18/23 20:[address] head wo con* [id number] Routine Cat Scan 06/19/23 23:00 Completed CTA head neck [CT angio headneck* [id number]] Stat Cat Scan 06/18/23 20:27 Completed MR head wo con* [id number] Routine MRI 06/21/23 13:01 Completed CV. echo wo/w contrast [id number] Routine Ultrasound 06/18/23 23:25 Completed Pending at discharge Category Date Time Status Basic Metabolic Panel AM LABS Lab 06/23/23 04:00 Ordered Basic Metabolic Panel AM LABS Lab 06/24/23 04:00 Ordered Radiology Impressions Chest/Abdomen/Pelvis CTA 06/18/23 20:27 IMPRESSION: 1. For aortic dissection. 2. Ectasia of the ascending thoracic aorta 3. 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 Other chronic findings as described above. COMMENTS: Consistent with the [employer]'s Incidental Findings Committee white paper (J Am Rios Radiol 2018): Any incidental renal lesion less than 1 cm or classified as too small to characterize, or any incidental cystic renal lesion characterized as simple-appearing, is likely benign. No follow-up imaging is recommended for these lesions per consensus recommendations based on imaging criteria. Head/Neck CTA 06/18/23 20:27 IMPRESSION: 1. No acute intracranial abnormality. 2. Mild age-related changes. 3. Mild sinus disease. IMPRESSION: 1. No anterior circulation large vessel stenosis or occlusion. 2. The right vertebral artery is very tiny along its cervical course. Its distal portion shows no flow in multiple areas. This may be acute or chronic. An MRI may be considered. There are no priors in PACS. IMPRESSION: 1. No carotid stenosis or occlusion. 2. The right vertebral artery is very tiny along its course. Its distal portion shows no flow in multiple areas. This may be acute or chronic. An MRI may be considered. REFERENCES: NASCET CRITERIA. The degree of stenosis in the cervical segment of the internal carotid artery is based on NASCET criteria. Normal is no stenosis. Mild is less than 50% stenosis. Moderate is 50-69% stenosis. Severe is 70% to 99% stenosis. Total occlusion is no detectable patent lumen. Head CT 06/19/23 23:00 IMPRESSION: No acute intracranial finding. No evidence of hemorrhage. Head MRI 06/21/23 13:01 IMPRESSION: No acute ischemia. Laboratory Results WBC 6.78 10^3/uL (3.29-11.43) 06/20/23 04:28 RBC 5.08 10^6/uL (3.85-5.65) 06/20/23 04:28 Hgb 14.80 g/dL (11.27-16.99) 06/20/23 04:28 Hct 45.4 % (37-53) 06/20/23 04:28 MCV 89.4 fl (82-101) 06/20/23 04:28 MCH 29.1 pg (27-33) 06/20/23 04:28 MCHC 32.6 g/dL (30-55) 06/20/23 04:28 RDW 13.4 % (12.1-15.1) 06/20/23 04:28 Plt Count 193 10^3/cmm (157-399) 06/20/23 04:28 MPV 9.6 fL (7.4-10.4) 06/20/23 04:28 Neut % (Auto) 54.5 % 06/20/23 04:28 Lymph % (Auto) 29.5 % 06/20/23 04:28 Story % (Auto) 9.7 % 06/20/23 04:28 Eos % (Auto) 5.8 % 06/20/23 04:28 Baso % (Auto) 0.4 % 06/20/23 04:28 Neut # (Auto) 3.69 10^3/uL (1.8-7.7) 06/20/23 04:28 Lymph # (Auto) 2.0 10^3/uL (0.8-4.8) 06/20/23 04:28 Story # (Auto) 0.7 10^3/uL (0.2-0.9) 06/20/23 04:28 Eos # (Auto) 0.4 10^3/uL (0.0-0.8) 06/20/23 04:28 Baso # (Auto) 0.0 10^3/uL (0.0-0.1) 06/20/23 04:28 Nucleated RBC % (auto) 0 % 06/20/23 04:28 Nucleated RBCs # 0.0 /100WBC 06/20/23 04:28 PT 14.30 SECONDS (12.1-14.9) 06/19/23 02:06 INR 1.08 (0.8-1.2) 06/19/23 02:06 APTT 29.2 SECONDS (23.9-36.7) 06/18/23 20:10 Fibrinogen 317 mg/dL (174-498) 06/19/23 02:06 D-Dimer 0.58 ug/mLFEU (0-0.59) 06/18/23 20:10 Sodium 141 mmol/L (136-145) 06/22/23 04:03 Potassium 3.8 mmol/L (3.5-5.1) 06/22/23 04:03 Chloride 106 mmol/L (98-107) 06/22/23 04:03 Carbon Dioxide 27 mmol/L (22-29) 06/22/23 04:03 Anion Gap 11.8 (5-19) 06/22/23 04:03 BUN 15 mg/dL (8-23) 06/22/23 04:03 Creatinine 0.9 mg/dL (0.7-1.2) 06/22/23 04:03 GFR Calculation Not Reportable 06/22/23 04:03 Glucose 159 mg/dL (65-115) H 06/22/23 04:03 POC Glucose 237 mg/dL (70-110) H 06/22/23 11:05 Estimat Average Glucose 140 06/18/23 20:10 Hemoglobin A1c 6.5 % (4.0-6.0) H 06/18/23 20:10 Calculated Osmolality 296 mOsm/kg (285-295) H 06/22/23 04:03 Calcium 9.0 mg/dL (8.5-10.5) 06/22/23 04:03 Phosphorus 3.2 mg/dL (2.5-4.5) 06/19/23 02:06 Magnesium 2.1 mg/dL (1.7-2.3) 06/19/23 02:06 Total Bilirubin 0.6 mg/dL (0.15-1.2) 06/19/23 02:06 AST 16 U/L (0-40) 06/19/23 02:06 ALT 23 U/L (0-41) 06/19/23 02:06 Alkaline Phosphatase 104 U/L (40-130) 06/19/23 02:06 Troponin T Baseline 16 ng/L (0-15) H 06/18/23 20:10 Troponin T 120 Minute 16.23 ng/L (0-15) H 06/18/23 22:00 Delta Troponin T 0.23 ABS# (0-10) 06/18/23 22:00 Troponin T Hi Sens 6Hr 16.79 ng/L (0-15) H 06/19/23 02:06 Troponin T Hi Sens 6Hr Delta 0.79 ng/L (0-12) 06/19/23 02:06 Total Protein 6.8 g/dL (6.6-8.7) 06/19/23 02:06 Albumin 3.9 g/dL (3.5-5.2) 06/19/23 02:06 Globulin 2.9 g/dL (1.3-4.6) 06/19/23 02:06 Triglycerides 130 mg/dL (0-150) 06/18/23 22:00 Cholesterol 149 mg/dL (0-200) 06/18/23 22:00 LDL Cholesterol, Calc 82 mg/dL (50-129) 06/18/23 22:00 HDL Cholesterol 41 mg/dL (60-100) L 06/18/23 22:00 LDL/HDL Ratio 2.00 RATIO (0.00-3.22) 06/18/23 22:00 Cholesterol/HDL Ratio 3.63 mg/dL (1.0-5.00) 06/18/23 22:00 TSH 1.04 uIU/mL (0.27-4.20) 06/18/23 22:00 Urine Color Yellow (Yellow) 06/19/23 06:10 Urine Appearance Clear (CLEAR) 06/19/23 06:10 Urine pH 5 (5-7) 06/19/23 06:10 Ur Specific [place] 1.015 (1.005-1.030) 06/19/23 06:10 Urine Protein 1+ (Negative) H 06/19/23 06:10 Urine Glucose (UA) 4+ (Normal) H 06/19/23 06:10 Urine Ketones Negative (Negative) 06/19/23 06:10 Urine Blood 2+ (Negative) H 06/19/23 06:10 Urine Nitrate Negative (Negative) 06/19/23 06:10 Urine Bilirubin Neg (Negative) 06/19/23 06:10 Urine Urobilinogen 1 mg/dL (Negative) H 06/19/23 06:10 Ur Leukocyte Esterase Trace (Negative) H 06/19/23 06:10 Urine RBC 0-4 /hpf (0-2) H 06/19/23 06:10 Urine WBC 0-4 /hpf (0-5) H 06/19/23 06:10 Ur Squamous Epith Cells 0-4 /hpf (0-5) H 06/19/23 06:10 Amorphous Sediment Not Reportable 06/19/23 06:10 Urine Bacteria Trace /hpf (NONE) 06/19/23 06:10 Vitals Last Vital Signs Temp 98.5 F 06/22/23 12:00 Pulse 85 06/22/23 12:00 Resp 16 06/22/23 12:00 BP 175/90 06/22/23 12:00 Pulse Ox 96 06/22/23 12:00 O2 Del Method Room Air 06/22/23 08:00 FiO2 21 06/20/23 22:09 Discharge Plan Discharge Patient Disposition: Home Condition: Stable Prescriptions: New aspirin 81 mg Tablet,Delayed Release (Dr/Ec) 81 mg PO DAILY Qty: 90 0RF lidocaine 5 % adhesive patch,medicated 1 patch topical Q24H Qty: 15 1RF Rx Instructions: leave on most painful area for up to 12 hrs Keppra 500 mg tablet 500 mg PO BID 30 Days Qty: 60 0RF Continued tamsulosin [Flomax] 0.4 mg Capsule 0.4 mg PO QPM duloxetine [Cymbalta] 60 mg Capsule,Delayed Release(Dr/Ec) 60 mg PO BEDTIME@2200 rosuvastatin [Crestor] 40 mg tablet 40 mg PO QPM metoprolol tartrate 100 mg Tablet 100 mg PO BID prazosin 1 mg Capsule 1 mg PO BEDTIME glimepiride 4 mg Tablet 5 mg PO QAM Rx Instructions: administer with breakfast finasteride 5 mg Tablet 5 mg PO DAILY alogliptin 25 mg Tablet 25 mg PO DAILY Jardiance 25 mg Tablet 25 mg PO DAILY insulin glargine-yfgn 100 unit/mL Solution See Rx Instructions .ROUTE .COMPLEX Rx Instructions: 30 unit subcutaneously every morning and 15 units every evening at the same time each day. Discard any vial 28 days after opening. Changed amlodipine 10 mg tablet 5 mg PO DAILY@1999 Qty: 1 0RF Rx Instructions: Dose change only Discontinued lisinopril 40 mg Tablet 20 mg PO QAM No Action (DME) Compression Socks See Rx Instructions .Route .MEDSUPPLY Qty: 1 0RF Rx Instructions: left le cm left ankle: 28 cm Right le cm Right Ankle: 27 cm (DME) CO-Poly CUSTOM low profile insoles See Rx Instructions .Route .MEDSUPPLY Qty: 1 0RF Rx Instructions: As directed Discharge Orders: Discharge Order (Routine); Ordered 06/22/23 Ordered By: Carla Sawyer Other Ambulatory Orders: EEG amplitude integrated aEEG (Routine) Timeframe: 1 Week Facility: [facility] - Location: Neurology Ordered By: Carla Sawyer MCT/Event Monitor 14 Days (Routine) Timeframe: 1 Day Facility: [facility] - Location: Radiology Ordered By: Hiren Flores DME: Cane/ Crutches (Order) Location: None Selected Ordered By: Carla Sawyer Occupational Therapy Eval and Treat Outpatient (Order) Timeframe: 1 Day Facility: [facility] - Location: Occupational Therapy Ordered By: Hiren Flores Physical Therapy Eval and Treat Outpatient (Order) Timeframe: 1 Day Facility: [facility] - Location: Physical Therapy Ordered By: Hiren Flores Referrals: Reny Armstrong MD [Referring] - 4-7 days (We have notified your physician's clinic of the need for a follow-up appointment to be scheduled. If you have not heard from them within the next 2 business days, please call them directly. You may also reach out to our manager line at [phone] and she can assist you.) Yahaira Ch MD [Physician] - 07/21/23 12:30 pm (early follow up per Dr. Ch ) Discharge Diet: Cardiac and Diabetic Discharge Activity: Increase activity as tolerated Patient Instructions: Aspirin (By mouth), Levetiracetam (By mouth), Lidocaine Patch (On the skin), Ischemic Stroke (GEN), Hypertension (GEN), Opioid Safety Activity Restrictions/Additional Instructions: Monitor blood pressure 3 times daily. Continue metoprolol. Hold amlodipine if blood pressure is less than 120/80. In case blood pressure is rising and staying above 120/80, resume half dose lisinopril at 10 mg. Recheck blood pressure in several hours. In case remaining high, increase amlodipine to 10 mg. In case blood pressure remaining above 120/80 increase lisinopril back to usual dose of 20 mg. If blood pressure is at any point very high, more than 180 systolic or 110 diastolic, or if blood pressure is very low, less than 80 systolic or 40 diastolic, seek medical attention. Similarly return to the hospital in case of any worsening or new concerning symptoms. No aortic dissection seen on CT. However, ectasia of ascending thoracic aorta incidentally noted, please follow-up with your primary doctor. Small aneurysm incidentally seen in the left splenic artery. FAXED FOR APPOINTMENT FOR EEG WITH NEUROLOGY [phone] FAXED FOR APPOINTMENT FOR EVENT [facility]ITOR [facility] [phone] Discharge Attestations Time Spent in Discharge Care*: greater than 30 min Status at Discharge: Cognitive status at discharge: cognitively intact, Behavioral status at discharge: cooperative and independent in ADL's, Quality Metrics Clinical Quality Measures [ Cerebrovascular Accident { Contraindication to Antithrombotic: None; antithrombotic prescribed; Contraindication to Anticoagulation: Overlap treatment not indicated; Contraindication to Statin: None; Statin prescribed;}] Coding Level of Care Code Acute Code for [facility] Fwd Diagnoses Acute CVA (cerebrovascular accident) I63.9 Received intravenous tissue plasminogen activator (tPA) within last 24 hours Diabetic peripheral neuropathy associated with type 2 diabetes mellitus E11.42 Diabetes mellitus type 2 in obese E11.69; E66.9
== END 2023-06-22 13:26 | disposition home or self-care (01) | DRG 62 ==
LOC: ER 22:07 → ICU 22:12 → MEDSURG 06-20 14:00
PROVIDERS: Emergency Medicine; Internal Medicine; Admitting Provider Family Medicine; Emergency Provider Emergency Medicine; PCP Emergency Medicine Emergency Medical Services; Visit Provider Student in an Organized Health Care Education/Training Program
DX: I63.9 Cerebral infarction, unspecified (principal); G81.94 Hemiplegia, unspecified affecting left nondominant side; R47.1 Dysarthria and anarthria; R29.704 NIHSS score 4; E11.42 Type 2 diabetes mellitus with diabetic polyneuropathy; E66.01 Morbid (severe) obesity due to excess calories; Z68.36 Body mass index [BMI] 36.0-36.9, adult; Z79.4 Long term (current) use of insulin; E11.22 Type 2 diabetes mellitus with diabetic chronic kidney disease; I12.9 Hypertensive chronic kidney disease with stage 1 through stage 4 chronic kidney disease, or unspecified chronic kidney disease; N18.2 Chronic kidney disease, stage 2 (mild); N40.0 Benign prostatic hyperplasia without lower urinary tract symptoms; I72.8 Aneurysm of other specified arteries; R07.9 Chest pain, unspecified; I77.810 Thoracic aortic ectasia; Z79.84 Long term (current) use of oral hypoglycemic drugs; M54.6 Pain in thoracic spine; E78.5 Hyperlipidemia, unspecified; M19.90 Unspecified osteoarthritis, unspecified site; Z96.652 Presence of left artificial knee joint; Z87.891 Personal history of nicotine dependence
CPT/HCPCS: 36415; 36416; 70450; 70496; 70498; 70551; 71275; 74174; 80048; 80053; 80061; 81001; 82962; 83036; 83735; 84100; 84443; 84484; 85025; 85378; 85384; 85610; 85730; 92523; 92610; 93005; 94664; 96372; 96374; 97110; 97116; 97162; 97165; 99291; C8929; C9113; J1815; J2997; J3490; J7030; Q9956; Q9967

== ENCOUNTER → 2023-07-14 08:11 | Outpatient (BNVA) | payer OTHER, MEDICARE, SELFPAY | PROVIDERS: PCP Family Medicine; Visit Provider Specialist | DX: I63.9 Cerebral infarction, unspecified (principal); R56.9 Unspecified convulsions | CPT/HCPCS: 95816 ==

== ENCOUNTER → 2023-07-21 12:18 | Outpatient (BNVA) | payer OTHER, MEDICARE, SELFPAY | PROVIDERS: PCP Family Medicine; Visit Provider Specialist | DX: I63.9 Cerebral infarction, unspecified (principal); G92.9 Unspecified toxic encephalopathy | CPT/HCPCS: 99205 ==

== ENCOUNTER 2023-07-23 09:25 | Outpatient (RCR) | payer OTHER, SELFPAY | END 2023-08-20 23:59 | disposition home or self-care (01) | LOC: SPT 09:25 | PROVIDERS: PCP Family Medicine; Visit Provider Family Medicine | DX: I63.9 Cerebral infarction, unspecified (principal) | CPT/HCPCS: 97110; 97162 ==

== ENCOUNTER 2023-08-21 06:00 | Outpatient (RCR) | payer OTHER, SELFPAY | END 2023-08-21 23:59 | disposition home or self-care (01) | LOC: SPT 06:00 | PROVIDERS: PCP Family Medicine; Visit Provider Family Medicine | DX: I63.9 Cerebral infarction, unspecified (principal) | CPT/HCPCS: 97110; 97530 ==

== ENCOUNTER 2023-09-08 10:58 | Emergency (ER) | payer OTHER, SELFPAY ==
--- NOTE | 2023-09-08 11:01 | XR_ITS ---
WS: [id number] Portable AP upright chest, 09/08/2023 Clinical Data: chest pain Comparison: Portable chest, 06/18/2023 Findings: No nodules, masses or effusions are seen. The heart is normal. The pulmonary vascularity is not increased. No pneumonia or pneumothorax is seen. The aortic arch and descending thoracic aorta s how tortuosity. There are monitor leads on the chest wall. Impression: Atherosclerosis.
[2023-09-08 11:03] VITALS: BMI 38.7
--- NOTE | 2023-09-08 11:05 | ECG_ITS ---
[facility] Test Date: 2023-09-08 Pat Name: Rajeev Carter Department: Room: Gender: Male Matlab Developer: : [id number] Requested By: Gregory Lucas Order Number: [id number] Jax MD: Madeline Viramontes M.D. 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 [id number]
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
[2023-09-08] MEDS: aspirin 81 mg Chew Tablet 324 MG PO (11:21)
[2023-09-08 11:22] VITALS: BP 143/101; PULSE 79; RESP 18; O2SAT 95
[2023-09-08 11:32] LABS: Basophils % 0.4 %; Eosinophils # 0.3 10^3/uL (0.0-0.8); Eosinophils % 3.4 %; Lymphocytes # 1.9 10^3/uL (0.8-4.8); Lymphocytes % 22.8 %; Mean Platelet Volume 9.7 fL (7.4-10.4); Monocytes # 0.7 10^3/uL (0.2-0.9); Monocytes % 8.1 %; Neutrophils # 5.42 10^3/uL (1.8-7.7); Neutrophils % 65.1 %; Nucleated Red Blood Cells % 0 %; Platelet Count 226 10^3/cmm (157-399); Red Blood Count 5.34 10^6/uL (3.85-5.65); Red Cell Distribution Width 13.2 % (12.1-15.1); White Blood Count 8.32 10^3/uL (3.29-11.43)
[2023-09-08 11:54] LABS: Alanine Aminotransferase 36 U/L (0-41); Alkaline Phosphatase 123 U/L (40-130); Anion Gap 13.9 (5-19); Aspartate Amino Transferase 21 U/L (0-40); Blood Urea Nitrogen 23 mg/dL (8-23); Calcium 9.8 mg/dL (8.5-10.5); Carbon Dioxide 25 mmol/L (22-29); Chloride 100 mmol/L (98-107); Creatinine Clr Calc Pharmacy 94.2489; Globulin 2.3 g/dL (1.3-4.6); Glucose 305 mg/dL (65-115); Osmolality Calculated 295 mOsm/kg (285-295); Potassium 3.9 mmol/L (3.5-5.1); Sodium 135 mmol/L (136-145); Total Bilirubin 0.6 mg/dL (0.15-1.2); Total Protein 6.3 g/dL (6.6-8.7)
[2023-09-08 11:56] LABS: Troponin(5th) Baseline 20 ng/L (0-15)
[2023-09-08 12:56] VITALS: BP 151/91; PULSE 60; RESP 18; O2SAT 95
--- NOTE | 2023-09-08 13:00 | ECG_ITS ---
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 Measurements Intervals [place] Rate: 56 P: 58 [place]: 224 QRS: -1 QRSD: 114 T: 13 QT: 434 QTc: 420 Interpretive Statements SINUS BRADYCARDIA WITH FIRST DEGREE AV BLOCK MODERATE INTRAVENTRICULAR CONDUCTION DELAY [110+ ms QRS DURATION] Compared to ECG 06/19/2023 02:49:02 Intraventricular conduction delay now present Sinus rhythm no longer present Left-axis deviation no longer present Myocardial infarct finding no longer present Electronically Signed On 09-08-2023 14:42:44 SALES AND RETAIL MANAGEMENT RECRUITER by Wiley Wilhelm M.D. [id number]
[2023-09-08 14:02] LABS: Troponin 5 2HR 19.94 ng/L (0-15)
[2023-09-08 14:08] LABS: Troponin 5 2HR Delta -0.06 ABS# (0-10)
[2023-09-08] MEDS: orphenadrine 30 mg/mL Inj 2 mL 60 MG IM (14:53)
[2023-09-08] MEDS: ketorolac 30 mg/mL INJ IM (14:53)
== END 2023-09-08 15:08 | disposition home or self-care (01) ==
PROVIDERS: Emergency Provider Family Medicine; PCP Family Medicine
DX: R07.89 Other chest pain (principal); M54.9 Dorsalgia, unspecified; Z79.82 Long term (current) use of aspirin; Z79.84 Long term (current) use of oral hypoglycemic drugs; Z79.4 Long term (current) use of insulin; Z87.891 Personal history of nicotine dependence; I12.9 Hypertensive chronic kidney disease with stage 1 through stage 4 chronic kidney disease, or unspecified chronic kidney disease; N18.2 Chronic kidney disease, stage 2 (mild); E78.5 Hyperlipidemia, unspecified
CPT/HCPCS: 36415; 71045; 80053; 84484; 85025; 93005; 96372; 99285; J1885; J2360

== ENCOUNTER 2023-09-18 20:42 | Emergency (ER) | payer OTHER, SELFPAY ==
[2023-09-18 20:44] VITALS: BP 170/116; PULSE 120; RESP 20; TEMP 36.6; O2SAT 96; BMI 38.7
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
--- NOTE | 2023-09-18 21:00 | XRR_ITS ---
PROCEDURE INFORMATION: Exam: XR Chest Exam date and time: 09/18/2023 9:33 PM Age: 72 years old Clinical indication: Other: Fast heart beat; Additional info: Tachycardia TECHNIQUE: Imaging protocol: Radiologic exam of the chest. Views: 1 view. COMPARISON: CR XR chest 1V portable [id number] 09/08/2023 11:32 AM FINDINGS: Lungs: Clear, symmetrically inflated lungs. Pleural spaces: No pleural effusion. No pneumothorax. Heart/Mediastinum: Cardiac silhouette is normal in size for technique. Bones/joints: Age appropriate. XR/XR chest 1V portable [id number] IMPRESSION: No acute cardiopulmonary abnormality.
[2023-09-18 21:17] LABS: Basophils % 0.2 %; Eosinophils # 0.3 10^3/uL (0.0-0.8); Eosinophils % 1.9 %; Hematocrit 50.8 % (37-53); Lymphocytes # 1.6 10^3/uL (0.8-4.8); Lymphocytes % 10.8 %; Mean Corpuscular HGB Conc 34.3 g/dL (30-55); Mean Corpuscular Hemoglobin 29.5 pg (27-33); Mean Corpuscular Volume 86.2 fl (82-101); Mean Platelet Volume 9.4 fL (7.4-10.4); Monocytes % 6.6 %; Neutrophils % 80.2 %; Nucleated Red Blood Cells % 0 %; Platelet Count 305 10^3/cmm (157-399); Red Blood Count 5.89 10^6/uL (3.85-5.65); Red Cell Distribution Width 12.9 % (12.1-15.1); White Blood Count 14.47 10^3/uL (3.29-11.43)
--- NOTE | 2023-09-18 21:41 | ECG_ITS ---
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 Measurements Intervals [place] Rate: 112 P: 38 [place]: 190 QRS: -52 QRSD: 108 T: 54 QT: 326 QTc: 446 Interpretive Statements SINUS TACHYCARDIA PATTERN CONSISTENT WITH PULMONARY DISEASE LEFT ANTERIOR FASCICULAR BLOCK [QRS AXIS <= -45, QR IN I, RS IN II] Compared to ECG 09/08/2023 13:00:47 Left anterior fascicular block now present Sinus bradycardia no longer present First degree AV block no longer present Intraventricular conduction delay no longer present Electronically Signed On 09-19-2023 13:32:27 CANNONEER by Tristian Mccray M.D. [id number]
[2023-09-18 21:43] LABS: Troponin(5th) Baseline 16 ng/L (0-15)
[2023-09-18 21:52] LABS: Alanine Aminotransferase 33 U/L (0-41); Albumin Level 4.7 g/dL (3.5-5.2); Alkaline Phosphatase 149 U/L (40-130); Anion Gap 20.5 (5-19); Aspartate Amino Transferase 19 U/L (0-40); Blood Urea Nitrogen 18 mg/dL (8-23); Calcium 10.8 mg/dL (8.5-10.5); Carbon Dioxide 19 mmol/L (22-29); Chloride 102 mmol/L (98-107); Globulin 3.2 g/dL (1.3-4.6); Glucose 394 mg/dL (65-115); NT Pro B Type Natriuretic Pept 66 pg/mL (0-125); Osmolality Calculated 302 mOsm/kg (285-295); Potassium 4.5 mmol/L (3.5-5.1); Sodium 137 mmol/L (136-145); Total Bilirubin 0.5 mg/dL (0.15-1.2); Total Protein 7.9 g/dL (6.6-8.7)
[2023-09-18] MEDS: iohexol 350 mg/mL 500 mL Btl (per mL) IV (22:11)
[2023-09-18] MEDS: sodium chloride 0.9% 1,000 ML 999 ML IV (22:25)
--- NOTE | 2023-09-18 23:03 | ECG_ITS ---
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 Measurements Intervals [place] Rate: 120 P: 59 [place]: 186 QRS: -54 QRSD: 101 T: 62 QT: 310 QTc: 440 Interpretive Statements SINUS TACHYCARDIA LEFT AXIS DEVIATION [QRS AXIS < -30] PATTERN CONSISTENT WITH PULMONARY DISEASE Compared to ECG 09/18/2023 21:41:06 Left-axis deviation now present Left anterior fascicular block no longer present Electronically Signed On 09-19-2023 13:34:07 LEAD GENERATOR by Tristian Mccray M.D. [id number]
[2023-09-18 23:14] LABS: Troponin 5 2HR 14.84 ng/L (0-15)
[2023-09-18 23:16] LABS: Troponin 5 2HR Delta -1.16 ABS# (0-10)
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
[2023-09-19] MEDS: insulin regular-human 100 units/1 mL 10 UNIT IVP (00:45)
[2023-09-19 01:09] VITALS: BP 131/89; PULSE 122; O2SAT 93
[2023-09-19 01:21] LABS: Glucose Point of Care 182 mg/dL (70-110)
[2023-09-19 03:25] VITALS: BP 131/89; PULSE 113; O2SAT 94
--- NOTE | 2023-09-19 03:25 | PC.NURSE ---
transfer of care this nurse took over pt care at 0100.
== END 2023-09-19 02:05 | disposition home or self-care (01) ==
PROVIDERS: Emergency Provider Nurse Practitioner; PCP Family Medicine
DX: N39.0 Urinary tract infection, site not specified (principal); K56.41 Fecal impaction; R73.9 Hyperglycemia, unspecified; Z79.82 Long term (current) use of aspirin; Z79.84 Long term (current) use of oral hypoglycemic drugs; Z79.4 Long term (current) use of insulin; Z87.891 Personal history of nicotine dependence; I12.9 Hypertensive chronic kidney disease with stage 1 through stage 4 chronic kidney disease, or unspecified chronic kidney disease; N18.2 Chronic kidney disease, stage 2 (mild); E78.5 Hyperlipidemia, unspecified
CPT/HCPCS: 36415; 36416; 51702; 71045; 74177; 80053; 82962; 83880; 84484; 85025; 93005; 96374; 99285; J1815; J7030; Q9967

== ENCOUNTER → 2023-10-16 10:27 | Outpatient (BNVA) | payer OTHER, SELFPAY | PROVIDERS: PCP Family Medicine; Visit Provider Specialist | DX: I63.9 Cerebral infarction, unspecified (principal); E11.42 Type 2 diabetes mellitus with diabetic polyneuropathy; Z87.891 Personal history of nicotine dependence; Z99.89 Dependence on other enabling machines and devices | CPT/HCPCS: 99214 ==

== ENCOUNTER 2023-11-10 07:51 | Outpatient (CLI) | payer OTHER, SELFPAY ==
--- NOTE | 2023-11-10 09:27 | US_ITS ---
WS: [id number] ULTRASOUND ABDOMEN LIMITED CLINICAL INFORMATION: ELEVATED LIVER ENZYMES COMPARISON: None. FINDINGS: Exam limited due to body habitus. Liver Size: Enlarged Craniocaudal length: 21.3 cm. Echogenicity: Coarse Surface nodularity: None. Mass (size and location): None. Bile ducts Intrahepatic ducts: Normal. Common bile duct diameter: 0.5 cm. Gallbladder cholecystectomy. Pancreas Normal as visualized. Right kidney: Normal. Hydronephrosis: None. Size: 11.5 cm x 4.6 cm x 6.6 cm. Abdominal aorta and IVC Visualized portions are normal. Ascites: None. IMPRESSION: Limited and technically difficult study due to body habitus 1. Cholecystectomy. 2. Normal common bile duct. 3. Hepatomegaly with mild diffuse fatty infiltration. Recommend correlation with liver function test s. 4. No hydronephrosis in the RIGHT kidney. 5. No ascites.
== END 2023-11-10 07:52 | disposition home or self-care (01) ==
LOC: RAD 07:52
PROVIDERS: PCP Family Medicine; Visit Provider Family Medicine
DX: R74.8 Abnormal levels of other serum enzymes (principal); Z90.49 Acquired absence of other specified parts of digestive tract; K76.0 Fatty (change of) liver, not elsewhere classified; R16.0 Hepatomegaly, not elsewhere classified
CPT/HCPCS: 76705

== ENCOUNTER 2023-11-16 16:05 | Emergency (ER) | payer OTHER, SELFPAY ==
[2023-11-16 16:17] VITALS: BP 151/84; PULSE 64; RESP 16; TEMP 36.3; O2SAT 98; BMI 39.3
[2023-11-16 16:22] LABS: Glucose Point of Care 150 mg/dL (70-110)
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
[2023-11-16 16:44] LABS: Basophils % 0.4 %; Eosinophils # 0.3 10^3/uL (0.0-0.8); Eosinophils % 3.4 %; Hematocrit 46.3 % (37-53); Lymphocytes # 1.7 10^3/uL (0.8-4.8); Lymphocytes % 17.2 %; Mean Corpuscular HGB Conc 34.1 g/dL (30-55); Mean Corpuscular Hemoglobin 29.9 pg (27-33); Mean Corpuscular Volume 87.7 fl (82-101); Mean Platelet Volume 9.5 fL (7.4-10.4); Monocytes # 0.8 10^3/uL (0.2-0.9); Monocytes % 7.8 %; Neutrophils # 6.77 10^3/uL (1.8-7.7); Neutrophils % 70.9 %; Nucleated Red Blood Cells % 0 %; Platelet Count 216 10^3/cmm (157-399); Red Blood Count 5.28 10^6/uL (3.85-5.65); Red Cell Distribution Width 12.5 % (12.1-15.1); White Blood Count 9.57 10^3/uL (3.29-11.43)
[2023-11-16 16:58] VITALS: BP 150/70; PULSE 64; O2SAT 98
--- NOTE | 2023-11-16 16:59 | ECG_ITS ---
[facility] Test Date: 2023-11-16 Pat Name: Rajeev Carter Department: Room: Gender: Male Answerer: : 1950 Requested By: Gregory Lucas Order Number: [id number] Jax MD: Aric Castaneda M.D. Measurements Intervals [place] Rate: 62 P: 51 NH: 228 QRS: -21 QRSD: 109 T: 19 QT: 431 QTc: 438 Interpretive Statements SINUS RHYTHM WITH FIRST DEGREE AV BLOCK BORDERLINE LEFT AXIS DEVIATION [QRS AXIS < -20] Compared to ECG 09/19/2023 00:03:33 First degree AV block now present Sinus tachycardia no longer present Electronically Signed On 11-17-2023 0:40:16 VENETIAN BLIND MACHINE OPERATOR by Aric Castaneda M.D. [id number]
[2023-11-16 17:07] LABS: Alanine Aminotransferase 33 U/L (0-41); Albumin Level 3.9 g/dL (3.5-5.2); Alkaline Phosphatase 104 U/L (40-130); Anion Gap 15.6 (5-19); Aspartate Amino Transferase 27 U/L (0-40); Blood Urea Nitrogen 20 mg/dL (8-23); Carbon Dioxide 23 mmol/L (22-29); Chloride 106 mmol/L (98-107); Creatinine Clr Calc Pharmacy 90.9121; Globulin 2.8 g/dL (1.3-4.6); Glucose 173 mg/dL (65-115); Lipase 25 U/L (13-60); Osmolality Calculated 299 mOsm/kg (285-295); Potassium 3.6 mmol/L (3.5-5.1); Sodium 141 mmol/L (136-145); Total Bilirubin 0.4 mg/dL (0.15-1.2); Total Protein 6.7 g/dL (6.6-8.7)
[2023-11-16] MEDS: sodium chloride 0.9% 1,000 ML 999 ML IV (17:14)
[2023-11-16 17:22] VITALS: BP 123/64; PULSE 68; O2SAT 96
[2023-11-16 17:30] VITALS: BP 123/64; PULSE 64; O2SAT 95
[2023-11-16 17:36] LABS: Troponin(5th) Baseline 13 ng/L (0-15)
--- NOTE | 2023-11-16 17:38 | CT_ITS ---
WS: [id number] CT HEAD NONCONTRAST HISTORY: Altered mental status TECHNIQUE: Contiguous axial imaging performed through the brain in 2.5 mm imaging. Bone and soft tiss ue windows. Sagittal and coronal reformats reviewed. All CT scans at [facility] use at least one of these dose optimization techniques: automated exposure control; mA and/or kV adjustment per pa tient size (includes targeted exams where dose is matched to clinical indication); or iterative recon struction. DLP: 1089.08 mGy.cm COMPARISON: 06/19/2023 No acute intracranial hemorrhage, midline shift or mass effect. Moderate bilateral cortical atrophy and volume loss is similar to the prior study. Mild small vessel ischemic type changes. Small perivascular space or lacunar infarct inferior LEFT temporal lobe is unc hanged. Ventricles: Normal size with no hydrocephalus. Paranasal sinuses: Mucoperiosteal thickening in the sinuses. No air-fluid levels. Mastoid air cells: Well pneumatized. Calvarium and scalp: Skull is intact with no soft tissue edema or swelling. Scattered calcified plaque in the distal vertebral arteries and through the intracranial carotid ramo terry. IMPRESSION: 1. No acute intracranial hemorrhage or edema. 2. Stable moderate atrophy and small vessel ischemic disease. No acute findings.
[2023-11-16 18:35] VITALS: BP 132/87; PULSE 77; O2SAT 96
[2023-11-16 19:00] VITALS: PULSE 75; O2SAT 94
[2023-11-16 19:20] LABS: Troponin 5 2HR 12.95 ng/L (0-15)
[2023-11-16 19:21] LABS: Troponin 5 2HR Delta -0.05 ABS# (0-10)
== END 2023-11-16 20:10 | disposition home or self-care (01) ==
PROVIDERS: Emergency Medicine; Emergency Provider Family Medicine; PCP Family Medicine
DX: R53.1 Weakness (principal); Z79.82 Long term (current) use of aspirin; Z79.4 Long term (current) use of insulin; Z79.84 Long term (current) use of oral hypoglycemic drugs; Z87.891 Personal history of nicotine dependence; I12.9 Hypertensive chronic kidney disease with stage 1 through stage 4 chronic kidney disease, or unspecified chronic kidney disease; N18.2 Chronic kidney disease, stage 2 (mild); E78.5 Hyperlipidemia, unspecified
CPT/HCPCS: 36415; 36416; 70450; 80053; 82962; 83690; 84484; 85025; 93005; 99284; J7030

== ENCOUNTER 2023-12-22 10:26 | Outpatient (CLI) | payer OTHER, SELFPAY ==
--- NOTE | 2023-12-22 10:38 | MR_ITS ---
WS: [id number] MRI BRAIN WITH AND WITHOUT CONTRAST HISTORY: SYNCOPAL EPISODE/ CVA (06/13) COMPARISON: 06/21/2023, CT head 11/16/2023 TECHNIQUE: Multiplanar imaging performed through the brain with MultiHance 20 ml's IV. No acute infarcts. Diffusion imaging is normal. There is moderate symmetric atrophy and mild small ve ssel ischemic disease. Small vessel disease does not appear significantly progressed. No hemorrhage. There is significant motion artifact causing some limitation. No susceptibility artifacts or prior lacunar infarcts. Ventricles and extra-axial spaces are normal. Clivus and pituitary gland are normal. Visualized posterior fossa and brainstem are also normal. Postcontrast imaging is significantly limited by motion. No masses are identified. No vascular malfor mation. Dural venous sinuses are normal. Paranasal sinuses: No air-fluid levels. Mastoid air cells: Normal. Calvarium and scalp: Normal. IMPRESSION: 1. Quality of this examination is significantly compromised by motion artifact. 2. No diffusion abnormality or acute infarct. 3. Moderate atrophy and mild small vessel ischemic changes. Very similar to the prior study of 2022. No obvious progression. 4. No enhancing mass.
[2023-12-22] MEDS: gadobenate dimeglumine 20 mL vial IV (11:52)
== END 2023-12-22 10:27 | disposition home or self-care (01) ==
LOC: RAD 10:26
PROVIDERS: PCP Family Medicine; Visit Provider Family Medicine
DX: R55 Syncope and collapse (principal); G31.9 Degenerative disease of nervous system, unspecified
CPT/HCPCS: 70553; A9577

== ENCOUNTER → 2024-02-16 15:08 | Outpatient (BNVA) | payer OTHER, SELFPAY | PROVIDERS: PCP Family Medicine; Visit Provider Internal Medicine Cardiovascular Disease | DX: R07.9 Chest pain, unspecified (principal); I12.9 Hypertensive chronic kidney disease with stage 1 through stage 4 chronic kidney disease, or unspecified chronic kidney disease; E11.22 Type 2 diabetes mellitus with diabetic chronic kidney disease; N18.2 Chronic kidney disease, stage 2 (mild); Z79.84 Long term (current) use of oral hypoglycemic drugs; E11.69 Type 2 diabetes mellitus with other specified complication; E66.9 Obesity, unspecified; G47.33 Obstructive sleep apnea (adult) (pediatric); E78.5 Hyperlipidemia, unspecified; Z86.73 Personal history of transient ischemic attack (TIA), and cerebral infarction without residual deficits; Z87.891 Personal history of nicotine dependence; Z68.41 Body mass index [BMI] 40.0-44.9, adult | CPT/HCPCS: 99204 ==